=== PATIENT | female | born 1960 | race Caucasian/White ===

== ENCOUNTER → 2020-05-02 14:26 | Outpatient (BNVA) | payer OTHER, SELFPAY | PROVIDERS: PCP Internal Medicine; Referring Provider Internal Medicine; Visit Provider Surgery | DX: Z76.89 Persons encountering health services in other specified circumstances (principal) ==

== ENCOUNTER 2020-05-29 06:35 | Outpatient (REF) | payer OTHER, SELFPAY | END 2020-05-29 06:36 | disposition home or self-care (01) | LOC: HO.HMGCLDS 06:35 | PROVIDERS: PCP Internal Medicine; Visit Provider Internal Medicine | DX: Z20.828 Contact with and (suspected) exposure to other viral communicable diseases (principal) | CPT/HCPCS: C9803; U0003 ==

== ENCOUNTER 2020-06-14 06:30 | Day surgery (SDC) | payer OTHER, SELFPAY ==
[2020-06-09 09:39] VITALS: BMI 28.8
--- NOTE | 2020-06-13 12:10 | HO.ANESPROP2 ---
Documented by User: Nichole Suarez 06/13/20 12:11 HPI - Anesthesia Eval Consult details Narrative: 60yo F for Colonoscopy [facility] Past Medical History Medical History Family history of colon cancer Hypercholesterolemia Family History Family History Mother History of colon cancer, Onset Age: 77 Surgical History Surgical History History of colonoscopy Social History Social History Alcohol intake: current Alcohol intake frequency: holidays/special occasions only Alcohol type: wine Smoking Status: Never smoker Advance Directives Information Provided: No Current occupational status: employed 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 Meds Allergies Allergy/AdvReac Type Severity Reaction Status Date / Time No Known Allergies Allergy Verified 05/02/20 14:39 [No Known Allergies*] Home Medications Medication Instructions Recorded Confirmed Type atorvastatin 10 mg tablet 10 mg PO .THREE TIMES PER WEEK tab 05/02/20 06/09/20 History Exam Exam Date and Time: June 13, 2020 1210 Height,Weight and Vital Signs: Height 5 ft 3 in Weight 73.936 kg Assessment and Plan Assessment Anesthesia Assessment: Chart Reviewed Documented by User: Gabby Botello 06/14/20 08:07 [facility] Past Medical History Medical History Family history of colon cancer Hypercholesterolemia Family History Family History Mother History of colon cancer, Onset Age: 77 Family history of problems with anesthesia: No Surgical History Surgical History History of colonoscopy History of Problems with Anesthesia: No (Nausea and vomiting with conscious sedation for colonoscopy) Social History Social History (Reviewed 06/14/20 @ 07:19 by Gabby Ruiz Alcohol intake: current Alcohol intake frequency: holidays/special occasions only Alcohol type: wine Smoking Status: Never smoker Advance Directives Information Provided: No Current occupational status: employed 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 Meds Allergies Allergy/AdvReac Type Severity Reaction Status Date / Time No Known Allergies Allergy Verified 05/02/20 14:39 [No Known Allergies*] Home Medications Medication Instructions Recorded Confirmed Type atorvastatin 10 mg tablet 10 mg PO .THREE TIMES PER WEEK tab 05/02/20 06/09/20 History Exam Height,Weight and Vital Signs: Vital Signs Temp Pulse Resp BP Pulse Ox 06/14/20 06:55 97.3 F 78 18 118/71 98 Airway Mallampati Class: II TM Dist: >3cm Neck ROM: Full Heart: RRR Lungs: CTAB Assessment and Plan Assessment Anesthesia Assessment: Anesthesia Plan Discussed and Chart Reviewed Final Anesthetic Review NPO: Yes ASA Class: II Final Preanesthetic Review: No Changes in Pt Med Stat, Meds/Allgs Chart Reviewed, Consent Obtained/Reviewed and Anes Risks/Benef Reviewed Patient Risk: Low Procedure Risk: Low Anesthetic Plan Anesthetic Plan: MAC: Disposition: Standard PACU
[2020-06-14 06:55] VITALS: BP 118/71; PULSE 78; RESP 18; TEMP 36.3; O2SAT 98
[2020-06-14] MEDS: Lactated Ringers 1,000 ML 100 ML IVCONT (07:20)
--- NOTE | 2020-06-14 07:20 | MHC.SHP ---
Pre-Procedural Eval Section B Chief Complaint: Family Hx of Colon Cancer Details of Present Illness: No GI symptoms. Routine screening due. Relevant Family History (Specify if Yes): Yes Relevant Social History: None Present Medications: see Short Stay Collaborative assessment Medical History: Significant History (hypercholesterolemia) History of Previous Operations: No relevant previous surgery Allergies: Allergies Allergy/AdvReac Type Severity Reaction Status Date / Time No Known Allergies Allergy Verified 05/02/20 14:39 [No Known Allergies*] Review of Systems Sugical H&P ROS: Negative: Constitution, Cardiovascular, Respiratory, Neurological, Psychiatric, Hem-Onc, Allergic/Immunologic, Gastrointestinal, Genitourinary, Musculoskeletal, Integumentary, Endocrine and Eyes/Ears/Nose/Throat Exam Surgical H&P Exam: Normal: HEENT, Normal: Heart, Normal: Lungs, Normal: Extremities, Normal: Abdomen, Normal: Skin and Normal: Neurological Plan Diagnosis/Plan: Unchanged Patient has been examined and remains a candidate for the planned procedure
[2020-06-14] MEDS: Scopolamine 1.5 MG PATCH.TD.3 TRANSDERMA (07:22)
--- NOTE | 2020-06-14 08:20 | W.PM.OPN ---
Operative Note Operative Note Date of Service: 06/14/20 Narrative: Preoperative diagnosis: Family history of colon cancer Postoperative diagnosis: The same, colon polyps and internal hemorrhoids Procedure: Colonoscopy with biopsy and polypectomy Anesthesia: Monitored anesthesia care Specimens: Polyps distal ascending colon and 20 cm Estimated blood loss: Less than 1 cc Other findings: None Immediate complications: None Indications: This is a 60-year-old female with a family history of colon cancer who presents for routine surveillance Procedure in detail: The patient left lateral decubitus position, time-out procedure was performed. Adequate sedation was achieved. Rectal examination was performed and was unremarkable. The flexible pediatric colonoscope was introduced and was gradually advanced through the bowel to the level of the cecum. The cecal pouch, ileocecal valve and appendiceal orifice were visualized and appeared normal. The ileocecal valve was not intubated. The prep was good. The scope was slowly withdrawn, visualizing all mucosal surfaces, was retroflexed within the rectum and was then straightened and withdrawn. In the distal ascending colon, 1 small polyp was identified and was removed with a single bite of biopsy forceps. No abnormalities were noted in the transverse or descending colon. In the sigmoid colon at 20 cm, an approximately 4 mm polyp was identified and was completely removed using the biopsy forceps. There was no significant bleeding. Retroflexion within the rectum revealed internal hemorrhoids. No other abnormalities were identified. Based upon findings, next routine colonoscopy will be due in 5 years.
[2020-06-14 08:21] VITALS: BP 92/50; PULSE 76; RESP 14; TEMP 36.2; O2SAT 98
[2020-06-14 08:37] VITALS: BP 126/74; PULSE 67; RESP 16; TEMP 36.2; O2SAT 100
--- NOTE | 2020-06-14 09:05 | HO.POSTANES ---
Post Anesthesia Evaluation Post Anesthesia Evaluation Vital Signs: Vital Signs Temp Pulse Resp BP Pulse Ox 06/14/20 08:37 97.1 F 67 16 126/74 100 06/14/20 08:21 97.1 F 76 14 92/50 L 98 06/14/20 06:55 97.3 F 78 18 118/71 98 Anesthesia: Monitored Mental Status: Awake Pain Control: Satisfactory Nausea/Vomiting: None Hydration: Adequate Anesthesia-Related Issues: No Anes. Related Issues
== END 2020-06-14 09:00 | disposition home or self-care (01) ==
PROVIDERS: PCP Internal Medicine; Visit Provider Surgery
PROC: 0DJD8ZZ Inspection of Lower Intestinal Tract, Via Natural or Artificial Opening Endoscopic (ICD-10-PCS; CPT 45378; principal; 2020-06-14 07:30)
DX: Z12.11 Encounter for screening for malignant neoplasm of colon (principal); D12.2 Benign neoplasm of ascending colon; K63.5 Polyp of colon; K64.8 Other hemorrhoids; Z80.0 Family history of malignant neoplasm of digestive organs
CPT/HCPCS: 45380; 88305

== ENCOUNTER 2020-06-15 16:16 | Outpatient (REF) | payer OTHER, SELFPAY ==
--- NOTE | 2020-06-15 16:20 | MM_ITS ---
EXAMINATION: MM SCREENING DIGITAL BREAST TOMOSYNTHESIS, BILATERAL CLINICAL INFORMATION: Screening. Asymptomatic. The lifetime risk of breast cancer based on the Tyrer-Cuzick Model is 4.6%. COMPARISON: Mammography: March 26, 2018 and studies dating back to July 10, 2011 TECHNIQUE: Digital breast tomosynthesis is performed in both the craniocaudal and mediolateral oblique views along with computer-aided detection (CAD). Synthesized 2D images are generated from the tomosynthesis. FINDINGS: The breasts are extremely dense, which lowers the sensitivity of mammography (ACR BI-RADS breast composition Category d). There are no significant masses, abnormal calcifications, or other abnormalities. MM/MM tomosynthesis screening BI IMPRESSION: There are no significant changes from prior study. ASSESSMENT: BI-RADS 1: Negative RECOMMENDATION: Routine annual mammography screening. This patient's information was entered into a reminder system with a target due date for their next mammogram.
== END 2020-06-15 16:17 | disposition home or self-care (01) ==
LOC: HO.MAMMO 16:16
PROVIDERS: PCP Internal Medicine; Visit Provider Internal Medicine
DX: Z12.31 Encounter for screening mammogram for malignant neoplasm of breast (principal)
CPT/HCPCS: 77063; 77067

== ENCOUNTER 2021-04-27 06:36 | Outpatient (REF) | payer OTHER, SELFPAY ==
[2021-04-27 11:25] LABS: MANUAL DIFF FLAG NO
[2021-04-27 11:36] LABS: Eosinophils Absolute Auto 0.1 X10*3/uL (0.0-0.4); Hemoglobin 12.4 g/dl (12.0-16.0); Imm Gran Abs Auto 0.01 X10*3/uL (0.00-0.03); Imm Gran Pct Auto 0.2 % (0.0-0.4); Lymphocytes Absolute Auto 1.6 X10*3/uL (1.2-4.9); Lymphocytes Percent Auto 39.6 % (20-40); Mean Corpuscular HGB Conc 33.5 g/dl (31.0-35.0); Mean Corpuscular Hemoglobin 31.4 pg (27.0-33.0); Mean Corpuscular Volume 93.7 fL (80-98); Mean Platelet Volume 10.2 fL (9.4-12.3); Monocytes Absolute Auto 0.3 X10*3/uL (0.1-1.2); Neutrophils Percent Auto 50.2 % (45-73); Platelet Count 261 X10*3/uL (160-400); Red Blood Count 3.95 X10*6/uL (4.20-5.50); Red Cell Distribution Width 12.3 % (11.0-16.0)
[2021-04-27 11:45] LABS: Alanine Aminotransferase 13 U/L (0-31); Albumin Level 4.3 g/dL (3.5-5.0); Alkaline Phosphatase 39 U/L (39-117); Anion Gap 13 (12-20); Aspartate Amino Transferase 19 U/L (5-31); Bilirubin Direct 0.2 mg/dL (0.0-0.5); Bilirubin Total 0.5 mg/dL (0.0-1.0); Blood Urea Nitrogen 11 mg/dL (9-16); Calcium 9.4 mg/dL (8.4-10.2); Carbon Dioxide 26 mmol/L (22-29); Chloride 107 mmol/L (96-108); Cholesterol 177 mg/dL; Estimated Glomerular Filt Rate > 60; Glucose Random 116 mg/dL (60-115); HDL Cholesterol 58 mg/dL; LDL Cholesterol Calculated 107 mg/dl; Potassium 4.5 mmol/L (3.3-5.1); Sodium 141 mmol/L (135-145); Total Protein 7.1 g/dL (6.5-8.0); Triglycerides 60 mg/dL
[2021-04-27 12:06] LABS: Vitamin D 25-OH Total 32.6 ng/mL (>30)
== END 2021-04-27 06:37 | disposition home or self-care (01) ==
LOC: HO.HMGCLDS 06:36
PROVIDERS: PCP Internal Medicine; Visit Provider Internal Medicine
DX: Z00.00 Encounter for general adult medical examination without abnormal findings (principal)
CPT/HCPCS: 36415; 80053; 80061; 82248; 82306; 85025

== ENCOUNTER 2021-08-08 14:22 | Outpatient (REF) | payer OTHER, SELFPAY ==
--- NOTE | ~2021-08-08 | MM_ITS ---
EXAMINATION: MM SCREENING DIGITAL BREAST TOMOSYNTHESIS, BILATERAL CLINICAL INFORMATION: Screening. Asymptomatic. The lifetime risk of breast cancer based on the Tyrer-Cuzick Model is 7%. COMPARISON: Mammography: 06/15/2020, 03/26/2018, 02/09/2015 TECHNIQUE: Digital breast tomosynthesis is performed in both the craniocaudal and mediolateral oblique views along with computer-aided detection (CAD). Synthesized 2D images are generated from the tomosynthesis. FINDINGS: The breasts are heterogeneously dense, which may obscure small masses (ACR BI-RADS breast composition Category c). There are no significant masses, abnormal calcifications, or other abnormalities. Parenchymal pattern is similar to prior studies. There is no developing density or architectural abnormality. The axilla and skin contours are unremarkable. No significant changes. MM/MM tomosynthesis screening BI IMPRESSION: No mammographic evidence of malignancy. ASSESSMENT: BI-RADS 1: Negative RECOMMENDATION: Routine annual mammography screening. This patient's information was entered into a reminder system with a target due date for their next mammogram.
--- NOTE | ~2021-08-08 | MM_ITS ---
EXAMINATION: BONE DENSITOMETRY CLINICAL INDICATION: Menopausal. COMPARISON: Previous BD dated 03/26/2018 and baseline BD dated 02/04/2008. TECHNIQUE: Using a RegeneRx DXA System (software version: 13.1) manufactured by [employer], dual-energy x-ray absorptiometry was performed of the lumbar spine and left hip. The images are of good technical quality. Summary results are attached. FINDINGS: AP SPINE L1-L4: Current: BMD 0.956 g/cm2, Z-score -0.8, T-score -1.9, osteopenia, 2.2% decrease from previous, 15.5% decrease from baseline (<5% change is not significant). Prior: BMD 0.978 g/cm2. Baseline: BMD 1.131 g/cm2. LEFT FEMUR, NECK: Current: BMD 0.780 g/cm2, Z-score -0.7, T-score -1.9, osteopenia. Prior: BMD 0.836 g/cm2. Baseline: BMD 0.974 g/cm2. LEFT FEMUR, TOTAL: Current: BMD 0.932 g/cm2, Z-score 0.2, T-score -0.6, normal, 4.3% decrease from previous, 14.0% decrease from baseline (<5% change is not significant). Prior: BMD 0.974 g/cm2. Baseline: BMD 1.084 g/cm2. IDENTIFIED RISK FACTORS: Menopause. HISTORY OF FRACTURE: None listed. MEDICATIONS: Calcium, multivitamin. MM/XR DEXA axial skeleton IMPRESSION: 1. DIAGNOSIS: Osteopenia based on the lowest T-score value of -1.9 in the lumbar spine and femoral neck applying World Health Organization criteria. 2. 10-YEAR FRACTURE RISK PREDICTION, FRAX: Major osteoporotic fracture (clinical spine, forearm, hip or shoulder) 9.4%. Hip fracture 1.1%. 3. Treatment Recommendations: NOF guidelines recommend consideration for treatment in postmenopausal women and men age 50 and older presenting with the following: -A hip or vertebral (clinical or morphometric) fracture. -T-score less than or equal to -2.5 at the femoral neck or spine after appropriate evaluation to exclude secondary causes. -Low bone mass at the hip or spine and a 10-year fracture probability by FRAX of greater than or equal to 3% for hip fracture or greater than or equal to 20% for major osteoporotic fracture based on the [place] adapted WHO algorithm. 4. Other Recommendations: All treatment decisions require clinical judgment and consideration of individual patient factors, including patient preferences, comorbidities, previous drug use, risk factors not captured in the FRAX model (e.g. frailty, falls, vitamin D deficiency, increased bone turnover, interval significant decline in bone density) and possible under or overestimation of fracture risk by FRAX. Additional medical evaluation for secondary cause of low bone mineral density may be appropriate. FUTURE SCAN RECOMMENDATION: People with diagnosed cases of osteoporosis or at high risk for fracture should have regular bone mineral density tests. For patients eligible for Medicare, routine testing is allowed once every 2 years. The testing frequency can be increased to one year for patients who have rapidly progressing disease, those who are receiving or discontinuing medical therapy to restore bone mass, or have additional risk factors.
== END 2021-08-08 14:23 | disposition home or self-care (01) ==
LOC: HO.MAMMO 14:22
PROVIDERS: PCP Internal Medicine; Visit Provider Internal Medicine
DX: Z13.820 Encounter for screening for osteoporosis (principal); Z78.0 Asymptomatic menopausal state; Z12.31 Encounter for screening mammogram for malignant neoplasm of breast
CPT/HCPCS: 77063; 77067; 77080

== ENCOUNTER 2022-05-14 06:04 | Outpatient (REF) | payer OTHER, SELFPAY ==
[2022-05-14 11:37] LABS: MANUAL DIFF FLAG NO
[2022-05-14 11:50] LABS: Basophils Percent Auto 0.7 % (0-2); Eosinophils Absolute Auto 0.1 X10*3/uL (0.0-0.4); Eosinophils Percent Auto 1.9 % (0-4); Hematocrit 39.7 % (37.0-47.0); Hemoglobin 13.2 g/dl (12.0-16.0); Imm Gran Abs Auto 0.01 X10*3/uL (0.00-0.03); Imm Gran Pct Auto 0.2 % (0.0-0.4); Lymphocytes Absolute Auto 1.5 X10*3/uL (1.2-4.9); Lymphocytes Percent Auto 35.7 % (20-40); Mean Corpuscular HGB Conc 33.2 g/dl (31.0-35.0); Mean Corpuscular Hemoglobin 30.8 pg (27.0-33.0); Mean Corpuscular Volume 92.5 fL (80.0-98.0); Mean Platelet Volume 9.7 fL (9.4-12.3); Monocytes Absolute Auto 0.3 X10*3/uL (0.1-1.2); Monocytes Percent Auto 7.2 % (2-11); Neutrophils Absolute Auto 2.3 x10*3/uL (2.0-8.3); Neutrophils Percent Auto 54.3 % (45-73); Platelet Count 286 X10*3/uL (160-400); Red Blood Count 4.29 X10*6/uL (4.20-5.50); Red Cell Distribution Width 12.2 % (11.0-16.0); White Blood Count 4.3 X10*3/uL (4.8-10.8)
[2022-05-14 12:27] LABS: Alanine Aminotransferase 16 U/L (0-31); Albumin Level 4.5 g/dL (3.5-5.0); Alkaline Phosphatase 49 U/L (39-117); Anion Gap 15 (12-20); Aspartate Amino Transferase 21 U/L (5-31); Bilirubin Direct 0.2 mg/dL (0.0-0.5); Bilirubin Total 0.6 mg/dL (0.0-1.0); Blood Urea Nitrogen 17 mg/dL (9-16); Calcium 9.3 mg/dL (8.4-10.2); Carbon Dioxide 27 mmol/L (22-29); Chloride 105 mmol/L (96-108); Cholesterol 199 mg/dL; Estimated Glomerular Filt Rate > 60; Glucose Fasting 103 mg/dL (60-99); HDL Cholesterol 48 mg/dL; LDL Cholesterol Calculated 123 mg/dl; Potassium 4.5 mmol/L (3.3-5.1); Sodium 142 mmol/L (135-145); Total Protein 7.6 g/dL (6.5-8.0); Triglycerides 141 mg/dL
[2022-05-14 12:51] LABS: Thyroid Stimulating Hormone 1.27 uIU/mL (0.32-4.0); Vitamin D 25-OH Total 31.5 ng/mL (>30)
== END 2022-05-14 06:05 | disposition home or self-care (01) ==
LOC: HO.HMGCLDS 06:04
PROVIDERS: PCP Internal Medicine; Visit Provider Internal Medicine
DX: Z00.00 Encounter for general adult medical examination without abnormal findings (principal)
CPT/HCPCS: 36415; 80053; 80061; 80076; 82248; 82306; 84443; 85025

== ENCOUNTER → 2022-07-10 14:25 | Outpatient (REF) | payer OTHER, SELFPAY | LOC: HO.SL 14:25 | PROVIDERS: PCP Internal Medicine; Visit Provider Internal Medicine | DX: R06.83 Snoring (principal); R06.00 Dyspnea, unspecified; R53.83 Other fatigue | CPT/HCPCS: 95806 ==

== ENCOUNTER 2023-01-15 07:57 | Outpatient (REF) | payer OTHER, SELFPAY ==
[2023-01-15 12:26] LABS: Alanine Aminotransferase 20 U/L (0-31); Albumin Level 4.3 g/dL (3.5-5.0); Alkaline Phosphatase 49 U/L (39-117); Anion Gap 14 (12-20); Aspartate Amino Transferase 19 U/L (5-31); Bilirubin Direct 0.2 mg/dL (0.0-0.5); Bilirubin Total 0.8 mg/dL (0.0-1.0); Blood Urea Nitrogen 14 mg/dL (9-16); C Reactive Protein 0.27 mg/dL (< or = 0.50); Calcium 9.6 mg/dL (8.4-10.2); Carbon Dioxide 24 mmol/L (22-29); Chloride 106 mmol/L (96-108); Estimated Glomerular Filt Rate > 60; Glucose Fasting 105 mg/dL (60-99); Glucose Random 105 mg/dL (60-115); Potassium 4.4 mmol/L (3.3-5.1); Sodium 140 mmol/L (135-145); Total Protein 7.6 g/dL (6.5-8.0)
[2023-01-15 12:54] LABS: Free T4 (Free Thyroxine) 0.89 ng/dL (0.71-1.85); Thyroid Stimulating Hormone 1.37 uIU/mL (0.32-4.0)
== END 2023-01-15 07:58 | disposition home or self-care (01) ==
LOC: HO.HMGCLDS 07:57
PROVIDERS: PCP Internal Medicine; Visit Provider Internal Medicine
DX: R63.5 Abnormal weight gain (principal); E78.00 Pure hypercholesterolemia, unspecified
CPT/HCPCS: 36415; 80048; 80076; 82947; 84439; 84443; 86140

== ENCOUNTER 2023-03-14 09:23 | Outpatient (REF) | payer OTHER, SELFPAY ==
--- NOTE | 2023-03-14 | PFT_ITS ---
Forced vital capacity 115%, FEV1 126%, FEV1/FVC ratio is 84. [id number] 161% and MVV 83%. Post bronchodilator therapy there is no significant change. Total lung capacity 108% and residual volume 97%. Diffusion capacity 94%. CONCLUSION: Essentially normal pulmonary function test, and there is no evidence of obstructive or restrictive pulmonary disorder. MD NINA Olivo/PIYUSH / [id number]
== END 2023-03-14 09:24 | disposition home or self-care (01) ==
LOC: HO.RESP 09:23
PROVIDERS: Visit Provider Internal Medicine
DX: R06.02 Shortness of breath (principal)
CPT/HCPCS: 94010; 94727; 94729

== ENCOUNTER → 2023-03-14 09:25 | Outpatient (BNV) | payer OTHER, SELFPAY | PROVIDERS: Visit Provider Internal Medicine | DX: G47.33 Obstructive sleep apnea (adult) (pediatric) (principal); R06.09 Other forms of dyspnea | CPT/HCPCS: 94060; 94727; 94729 ==

== ENCOUNTER 2023-04-01 10:47 | Emergency (ER) | payer OTHER, SELFPAY ==
[2023-04-01 10:51] VITALS: BP 143/89; PULSE 80; RESP 18; TEMP 36.7; O2SAT 98; BMI 32.8
--- NOTE | 2023-04-01 10:54 | ECG_ITS ---
Test Reason : dizziness Blood Pressure : / mmHG Vent. Rate : 071 BPM Atrial Rate : 071 BPM P-R Int : 150 ms QRS Dur : 072 ms QT Int : 412 ms P-R-T Axes : 002 039 022 degrees QTc Int : 447 ms Normal sinus rhythm Normal ECG No previous ECGs available Referred By: Generic ED Physician Electronically Signed By:GISSEL GILL
--- NOTE | 2023-04-01 11:00 | ED_ITS ---
HPI - General Adult General Chief complaint: General Medical Stated complaint: HBP/Dizziness/Headache Time Seen by Provider: 04/01/23 13:39 Source: patient Mode of arrival: ambulatory Limitations: no limitations History of Present Illness HPI narrative: Patient is 62-year-old female presenting to the emergency department after missing an episode of lightheadedness at work earlier today. 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 States that she leaned forward and placed her head between her knees. After several minutes symptoms past and she went to the school nurse for evaluation. The school nurse reported that her blood pressure was mildly elevated to approximately 145 systolic. She reports some chest pressure at this time, states is unsure if it was related to her episode of lightheadedness or if it was related to anxiety. States that the school nurse told her to drink some water and to return in an hour for a blood pressure check. Patient states that she did this and her blood pressure was still mildly elevated upon recheck. She states that the nurse checked with both the automatic machine as well as a manual blood pressure. She denies current dizziness, lightheadedness, headache, vision changes, weakness, numbness or tingling, chest pain or shortness of breath. MD complaint: lightheaded Onset (ago): hour(s) Location: chest Radiation: non-radiation Severity: mild Quality: other (pressure) Pain Consistency: now resolved Relieving factors: none Exacerbating factors: none Associated symptoms: other (lightheadedness) Treatments prior to arrival: none Related Data Home Medications Medication Instructions Recorded Confirmed atorvastatin 10 mg tablet 10 mg PO .THREE TIMES PER WEEK 05/02/20 06/09/20 Allergies Allergy/AdvReac Type Severity Reaction Status Date / Time No Known Allergies Allergy Verified 05/02/20 14:39 [No Known Allergies*] Review of Systems 2 Review of Systems: Constitutional : No Weight loss, No Fever, No Chills, No Fatigue, No Malaise ENT/Mouth : No sore throat, No Rhinorrhea Eyes: No Eye Pain, No Swelling, No Redness Cardiovascular : No Chest Pain, No SOB, No Dyspnea on Exertion, No Orthopnea, No Edema, No Palpitations Respiratory : No Cough, No Sputum, No Wheezing Gastrointestinal : No Nausea, No Vomiting, No Diarrhea, No Constipation, No abdominal Pain, No Hematochezia, No Melena Genitourinary : No Dysuria, No Urinary Frequency, No Hematuria, Musculoskeletal : No joint pain, No Myalgias, No Joint Swelling Skin : No Skin Lesions, No rash Neuro : No Weakness, No Numbness, No Dizziness, No Headache Psych : No Anxiety/Panic, No Depression All other systems reviewed and are negative Yes all other systems are reviewed and are negative [facility] Past Medical History Attestation statement: The following information was validated with the patient. 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 Blood pressure mildly elevated. Heart rate normal. Respiratory rate normal. Temperature normal. Oxygen saturation normal. NIH Stroke Scale Internal: Initial- Upon Arrival Time: 14:34 Level of Consciousness: Alert Level of Consciousness Questions: Answers both questions correctly Level of Consciousness Commands: Performs both tasks correctly Best Gaze: Normal Visual: No visual loss Facial Palsy: Normal Motor Arm (Right): No drift Motor Arm (Left): No drift Motor Leg (Right): No drift Motor Leg (Left): No drift Limb Ataxia: Absent Sensory: Normal Best Language: No aphasia Dysarthia: Normal Extinction and Inattention: No abnormality Score: 0 Course Course Course Narrative: This is an RME: Additional HPI, ROS, PE not included below will be deferred to primary provider. 62 year old female presents w/ dizzy spell at work w/ chest discomfort since before 8 am. Denies cp, sob at this time. NIHSS-0 PE nonfocal neuro Plan- labs, EKG Medical Decision Making Medical Decision Making [facility] Narrative: Patient is 62-year-old female presenting to the emergency department after missing an episode of lightheadedness at work earlier today. On exam patient is awake, A+Ox3, VS WNL, afebrile, normal neurological exam without focal deficits, physical exam findings as above. Given reported symptoms and physical exam findings, initial differential includes ACS, hypertensive urgency, electrolyte abnormality, dehydration, cardiac dysrhythmia, anemia, orthostatic intolerance. Do not suspect infection. Labs notable for leukopenia consistent with baseline, no anemia, negative initial troponin, will repeat 3 hours from initial, no electrolyte abnormalities. EKG shows normal sinus rhythm at rate of 71 beats per minute. HEART score of 3. No delta on repeat troponin. No orthostatic intolerance noted on vital signs. All results discussed with patient and family and all questions answered. Given that patient has been asymptomatic since arrival, feel patient is stable for discharge home at this time. Instructed patient to schedule follow-up appointment with PCP this week. Return precautions discussed at bedside. Patient verbalized understanding of and agreement with plan. Differential Diagnosis Differential Diagnoses: The differential diagnosis associated with the presentation includes As per MDM. Admission/Observation Consideration of admission/observation: Escalation of care including admission/observation considered Lab Data [facility] Lab Attestation statement: I reviewed the patient's lab results. As per MDM. 04/01/23 11:19 04/01/23 11:19 Labs: Lab Results 04/01/23 04/01/23 Range/Units 11:19 14:25 WBC 4.7 L (4.8-10.8) X10*3/uL RBC 4.24 (4.20-5.50) X10*6/uL Hgb 13.2 (12.0-16.0) g/dl Hct 39.5 (37.0-47.0) % MCV 93.2 (80.0-98.0) fL MCH 31.1 (27.0-33.0) pg MCHC 33.4 (31.0-35.0) g/dl RDW 12.7 (11.0-16.0) % Plt Count 266 (160-400) X10*3/uL MPV 9.2 L (9.4-12.3) fL Immature Gran % (Auto) 0.4 (0.0-0.4) % Neut % (Auto) 63.4 (45-73) % Lymph % (Auto) 28.9 (20-40) % Canadian % (Auto) 5.1 (2-11) % Eos % (Auto) 1.3 (0-4) % Baso % (Auto) 0.9 (0-2) % Lymph # (Auto) 1.4 (1.2-4.9) X10*3/uL Canadian # (Auto) 0.2 (0.1-1.2) X10*3/uL Eos # (Auto) 0.1 (0.0-0.4) X10*3/uL Baso # (Auto) 0.0 (0.0-0.2) X10*3/uL Abs Immat Gran (auto) 0.02 (0.00-0.03) X10*3/uL Absolute Neuts (auto) 3.0 (2.0-8.3) x10*3/uL Absolute Nucleated RBC 0.000 (0.0-0.012) X10*3/uL Nucleated RBC % (auto) 0.0 (0.0-0.2) /100WBC Sodium 141 (135-145) mmol/L Potassium 4.1 (3.3-5.1) mmol/L Chloride 107 (96-108) mmol/L Carbon Dioxide 25 (22-29) mmol/L Anion Gap 13 (12-20) BUN 12 (9-16) mg/dL Creatinine 0.79 (0.5-1.4) mg/dL Estim Creat Clear Calc 74.8 Estimated GFR > 60 Random Glucose 112 (60-115) mg/dL Calcium 9.6 (8.4-10.2) mg/dL Total Bilirubin 0.4 (0.0-1.0) mg/dL AST 20 (5-31) U/L ALT 17 (0-31) U/L Alkaline Phosphatase 57 (39-117) U/L Troponin I High Sens < 2.7 < 2.7 (<3.5-17.0) ng/L Total Protein 8.1 H (6.5-8.0) g/dL Albumin 4.6 (3.5-5.0) g/dL Independent Interpretation I performed an independent interpretation of an: EKG Interpretation: Normal sinus rhythm, rate 71 bpm, normal RI interval, no evidence of STEMI External Record Review External record reviewed: Inpatient record, Office record and Outpatient record Scores Heart Score History: -1- moderately suspicious ECG: -0- normal Age: -1- >45 - <65 Risk factory: -1- 1 or 2 risk factors Troponin: -0- < or = normal limit Score: 3 Risk: 1.7% Discharge Plan Discharge Clinical Impression: Episodic lightheadedness Patient Disposition: Home, Self-Care Instructions: Lightheadedness (ED) Additional Instructions: You were evaluated in the emergency department today for an episode of lightheadedness. Your evaluation including blood work and EKG did not reveal any evidence of conditions requiring emergent treatment at this time. Please contact your primary care provider tomorrow to schedule follow-up appointment. Return to the emergency department if you experience additional episodes of dizziness/lightheadedness, chest pain, shortness of breath, vision changes, new weakness, numbness, tingling to your extremities, or any other concerning symptoms. Prescriptions: No Action atorvastatin 10 mg tablet 10 mg PO .THREE TIMES PER WEEK
[2023-04-01 11:23] LABS: MANUAL DIFF FLAG NO
[2023-04-01 11:25] LABS: Basophils Percent Auto 0.9 % (0-2); Eosinophils Absolute Auto 0.1 X10*3/uL (0.0-0.4); Eosinophils Percent Auto 1.3 % (0-4); Hematocrit 39.5 % (37.0-47.0); Hemoglobin 13.2 g/dl (12.0-16.0); Imm Gran Abs Auto 0.02 X10*3/uL (0.00-0.03); Imm Gran Pct Auto 0.4 % (0.0-0.4); Lymphocytes Absolute Auto 1.4 X10*3/uL (1.2-4.9); Lymphocytes Percent Auto 28.9 % (20-40); Mean Corpuscular HGB Conc 33.4 g/dl (31.0-35.0); Mean Corpuscular Hemoglobin 31.1 pg (27.0-33.0); Mean Corpuscular Volume 93.2 fL (80.0-98.0); Mean Platelet Volume 9.2 fL (9.4-12.3); Monocytes Absolute Auto 0.2 X10*3/uL (0.1-1.2); Monocytes Percent Auto 5.1 % (2-11); Neutrophils Percent Auto 63.4 % (45-73); Platelet Count 266 X10*3/uL (160-400); Red Blood Count 4.24 X10*6/uL (4.20-5.50); Red Cell Distribution Width 12.7 % (11.0-16.0); White Blood Count 4.7 X10*3/uL (4.8-10.8)
[2023-04-01 11:37] LABS: Alanine Aminotransferase 17 U/L (0-31); Albumin Level 4.6 g/dL (3.5-5.0); Alkaline Phosphatase 57 U/L (39-117); Anion Gap 13 (12-20); Aspartate Amino Transferase 20 U/L (5-31); Bilirubin Total 0.4 mg/dL (0.0-1.0); Blood Urea Nitrogen 12 mg/dL (9-16); Calcium 9.6 mg/dL (8.4-10.2); Carbon Dioxide 25 mmol/L (22-29); Chloride 107 mmol/L (96-108); Creatinine Clr Calc Pharmacy 74.8; Estimated Glomerular Filt Rate > 60; Glucose Random 112 mg/dL (60-115); Potassium 4.1 mmol/L (3.3-5.1); Sodium 141 mmol/L (135-145); Total Protein 8.1 g/dL (6.5-8.0)
[2023-04-01 11:44] LABS: Troponin-I High Sensitivity < 2.7 ng/L (<3.5-17.0)
[2023-04-01 15:23] LABS: Troponin-I High Sensitivity < 2.7 ng/L (<3.5-17.0)
[2023-04-01 15:58] VITALS: BP 145/75; PULSE 67
[2023-04-01 16:03] VITALS: BP 138/75; PULSE 63
[2023-04-01 16:05] VITALS: BP 143/81; PULSE 71
== END 2023-04-01 16:35 | disposition home or self-care (01) ==
PROVIDERS: Registered Nurse Emergency; Emergency Provider Emergency Medicine; PCP Internal Medicine
DX: R42 Dizziness and giddiness (principal); R51.9 Headache, unspecified; Z79.899 Other long term (current) drug therapy
CPT/HCPCS: 36415; 80053; 84484; 85025; 93005; 99283; 99284

== ENCOUNTER 2023-04-03 12:19 | Outpatient (REF) | payer OTHER, SELFPAY ==
--- NOTE | ~2023-04-03 | XR_ITS ---
EXAMINATION: XR SINUSES CLINICAL INFORMATION: Sinusitis COMPARISON: None available. TECHNIQUE: White, Vazquez, lateral, and SMV FINDINGS: Paranasal sinuses appear clear without air-fluid levels. No fractures are identified. No radiodense foreign bodies. XR/XR sinus min 3V IMPRESSION: Unremarkable examination.
== END 2023-04-03 12:20 | disposition home or self-care (01) ==
LOC: HO.HMGCX 12:19
PROVIDERS: PCP Internal Medicine; Visit Provider Internal Medicine
DX: J32.9 Chronic sinusitis, unspecified (principal)
CPT/HCPCS: 70220

== ENCOUNTER 2023-05-23 09:39 | Outpatient (REF) | payer OTHER, SELFPAY ==
[2023-05-23 13:44] LABS: MANUAL DIFF FLAG NO
[2023-05-23 13:49] LABS: Basophils Absolute Auto 0.1 X10*3/uL (0.0-0.2); Basophils Percent Auto 1.1 % (0-2); Eosinophils Absolute Auto 0.1 X10*3/uL (0.0-0.4); Eosinophils Percent Auto 2.5 % (0-4); Hematocrit 39.6 % (37.0-47.0); Hemoglobin 13.1 g/dl (12.0-16.0); Imm Gran Abs Auto 0.02 X10*3/uL (0.00-0.03); Imm Gran Pct Auto 0.5 % (0.0-0.4); Lymphocytes Absolute Auto 1.5 X10*3/uL (1.2-4.9); Lymphocytes Percent Auto 33.8 % (20-40); Mean Corpuscular HGB Conc 33.1 g/dl (31.0-35.0); Mean Corpuscular Hemoglobin 30.9 pg (27.0-33.0); Mean Corpuscular Volume 93.4 fL (80.0-98.0); Monocytes Absolute Auto 0.4 X10*3/uL (0.1-1.2); Monocytes Percent Auto 8.8 % (2-11); Neutrophils Absolute Auto 2.4 x10*3/uL (2.0-8.3); Neutrophils Percent Auto 53.3 % (45-73); Platelet Count 288 X10*3/uL (160-400); Red Blood Count 4.24 X10*6/uL (4.20-5.50); Red Cell Distribution Width 12.6 % (11.0-16.0); White Blood Count 4.4 X10*3/uL (4.8-10.8)
[2023-05-23 14:14] LABS: Alanine Aminotransferase 13 U/L (0-31); Albumin Level 4.3 g/dL (3.5-5.0); Alkaline Phosphatase 51 U/L (39-117); Anion Gap 11 (12-20); Aspartate Amino Transferase 19 U/L (5-31); Bilirubin Total 0.6 mg/dL (0.0-1.0); Blood Urea Nitrogen 15 mg/dL (9-16); Calcium 9.6 mg/dL (8.4-10.2); Carbon Dioxide 28 mmol/L (22-29); Chloride 106 mmol/L (96-108); Cholesterol 209 mg/dL (<200); Estimated Glomerular Filt Rate > 60; Glucose Fasting 100 mg/dL (60-99); HDL Cholesterol 54 mg/dL (>40); LDL Cholesterol Calculated 135 mg/dL (<100); Potassium 4.9 mmol/L (3.3-5.1); Sodium 140 mmol/L (135-145); Total Protein 7.5 g/dL (6.5-8.0); Triglycerides 100 mg/dL (<150)
[2023-05-23 14:22] LABS: Vitamin D 25-OH Total 34.5 ng/mL (>30)
== END 2023-05-23 09:40 | disposition home or self-care (01) ==
LOC: HO.HMGCLDS 09:39
PROVIDERS: PCP Internal Medicine; Visit Provider Internal Medicine
DX: E78.00 Pure hypercholesterolemia, unspecified (principal); R79.89 Other specified abnormal findings of blood chemistry
CPT/HCPCS: 36415; 80053; 80061; 82306; 85025

== ENCOUNTER 2023-08-15 15:06 | Outpatient (REF) | payer OTHER, SELFPAY ==
--- NOTE | ~2023-08-15 | XR_ITS ---
EXAMINATION: XR CHEST CLINICAL INFORMATION: Cough. COMPARISON: None available. TECHNIQUE: 2 views of the chest were obtained. FINDINGS: No significant abnormality is noted involving the heart, lungs, mediastinum, bony thorax or soft tissues. XR/XR chest 2V IMPRESSION: Unremarkable examination.
[2023-08-15 16:05] LABS: Influenza A PCR NEGATIVE (Negative); Influenza B PCR NEGATIVE (Negative); Resp Syncy Virus RNA Qual PCR NEGATIVE (Negative); SARS COV2 PCR INHOUSE NEGATIVE (Negative)
== END 2023-08-15 15:07 | disposition home or self-care (01) ==
LOC: HO.XRAY 15:06
PROVIDERS: PCP Internal Medicine; Visit Provider Internal Medicine
DX: Z11.52 Encounter for screening for COVID-19 (principal); Z20.822 Contact with and (suspected) exposure to COVID-19; R05.9 Cough, unspecified
CPT/HCPCS: 0241U; 71046

== ENCOUNTER 2024-03-03 14:28 | Outpatient (REF) | payer OTHER, SELFPAY ==
--- NOTE | ~2024-03-03 | MM_ITS ---
EXAMINATION: MM SCREENING DIGITAL BREAST TOMOSYNTHESIS, BILATERAL CLINICAL INFORMATION: Screening. Asymptomatic. COMPARISON: Mammography: Comparison is made with available prior examinations. TECHNIQUE: Digital breast tomosynthesis is performed in both the craniocaudal and mediolateral oblique views along with computer-aided detection (CAD). Synthesized 2D images are generated from the tomosynthesis. FINDINGS: The breasts are heterogeneously dense, which may obscure small masses (ACR BI-RADS breast composition Category c). There are no significant masses, abnormal calcifications, or other abnormalities. MM/MM tomosynthesis screening BI IMPRESSION: No mammographic evidence of malignancy. ASSESSMENT: BI-RADS BI-RADS 1 - Negative RECOMMENDATION: Routine annual mammography screening. 1 year F/U This examination should not preclude the clinical evaluation of a suspicious palpable abnormality. This patient's information was entered into a reminder system with a target due date for their next mammogram. Electronically signed by: Sneha Alfonso DO 03/25/2024 06:16 PM EDT
== END 2024-03-03 14:29 | disposition home or self-care (01) ==
LOC: HO.MAMMO 14:28
PROVIDERS: PCP Internal Medicine; Visit Provider Internal Medicine
DX: Z12.31 Encounter for screening mammogram for malignant neoplasm of breast (principal)
CPT/HCPCS: 77063; 77067

== ENCOUNTER → 2024-03-03 14:45 | Outpatient (BNV) | payer OTHER, SELFPAY | PROVIDERS: PCP Internal Medicine; Visit Provider Internal Medicine | DX: Z12.31 Encounter for screening mammogram for malignant neoplasm of breast (principal) | CPT/HCPCS: 77063; 77067 ==

== ENCOUNTER 2024-06-08 07:34 | Outpatient (REF) | payer OTHER, SELFPAY ==
[2024-06-08 07:44] LABS: MANUAL DIFF FLAG NO
[2024-06-08 08:07] LABS: Basophils Absolute Auto 0.1 X10*3/uL (0.0-0.2); Basophils Percent Auto 1.1 % (0-2); Eosinophils Absolute Auto 0.1 X10*3/uL (0.0-0.4); Eosinophils Percent Auto 2.3 % (0-4); Hematocrit 38.9 % (37.0-47.0); Hemoglobin 13.3 g/dl (12.0-16.0); Imm Gran Abs Auto 0.01 X10*3/uL (0.00-0.03); Imm Gran Pct Auto 0.2 % (0.0-0.4); Lymphocytes Absolute Auto 1.7 X10*3/uL (1.2-4.9); Lymphocytes Percent Auto 38.8 % (20-40); Mean Corpuscular HGB Conc 34.2 g/dl (31.0-35.0); Mean Corpuscular Hemoglobin 31.4 pg (27.0-33.0); Mean Platelet Volume 9.7 fL (9.4-12.3); Monocytes Absolute Auto 0.4 X10*3/uL (0.1-1.2); Monocytes Percent Auto 8.1 % (2-11); Neutrophils Absolute Auto 2.2 x10*3/uL (2.0-8.3); Neutrophils Percent Auto 49.5 % (45-73); Platelet Count 266 X10*3/uL (160-400); Red Blood Count 4.23 X10*6/uL (4.20-5.50); Red Cell Distribution Width 12.8 % (11.0-16.0); White Blood Count 4.4 X10*3/uL (4.8-10.8)
[2024-06-08 08:28] LABS: Alanine Aminotransferase 21 U/L (0-31); Albumin Level 4.3 g/dL (3.5-5.0); Alkaline Phosphatase 46 U/L (39-117); Anion Gap 11 (12-20); Aspartate Amino Transferase 25 U/L (5-31); Bilirubin Direct 0.2 mg/dL (0.0-0.5); Bilirubin Total 0.7 mg/dL (0.0-1.0); Blood Urea Nitrogen 13 mg/dL (9-16); Calcium 9.2 mg/dL (8.4-10.2); Carbon Dioxide 27 mmol/L (22-29); Chloride 107 mmol/L (96-108); Cholesterol 205 mg/dL (<200); Estimated Glomerular Filt Rate > 60; Glucose Fasting 102 mg/dL (60-99); HDL Cholesterol 54 mg/dL (>40); LDL Cholesterol Calculated 133 mg/dL (<100); Magnesium 2.3 mg/dL (1.6-2.6); Potassium 4.7 mmol/L (3.3-5.1); Sodium 140 mmol/L (135-145); Total Protein 7.3 g/dL (6.5-8.0); Triglycerides 91 mg/dL (<150)
[2024-06-08 08:46] LABS: Free T4 (Free Thyroxine) 1.05 ng/dL (0.71-1.85); Thyroid Stimulating Hormone 1.04 uIU/mL (0.32-4.0); Vitamin D 25-OH Total 43.9 ng/mL (>30)
[2024-06-08 08:50] LABS: Vitamin B12 659 pg/mL (200-900)
== END 2024-06-08 07:35 | disposition home or self-care (01) ==
LOC: HO.LAB 07:34
PROVIDERS: PCP Internal Medicine; Visit Provider Internal Medicine
DX: R00.2 Palpitations (principal); E78.00 Pure hypercholesterolemia, unspecified; M85.80 Other specified disorders of bone density and structure, unspecified site
CPT/HCPCS: 36415; 80053; 80061; 80076; 82248; 82306; 82607; 83735; 84439; 84443; 85025

== ENCOUNTER → 2024-06-14 09:01 | Outpatient (REF) | payer OTHER, SELFPAY ==
--- NOTE | 2024-06-14 09:05 | CA_ITS ---
Transthoracic Echocardiogram Patient (Last, First, Middle): Danielle Omalley A Gender: Female Date of : 1960 Age: 64 Procedure Date: 06/14/2024 Procedure Type: Transthoracic Echocardiogram Location: OP Height: 160.02 cm Weight: 81.65 kg BSA: 1.85 m2 Heart Rate: bpm BP: 118 / 60 mmHg Plant Superintendent: Referring MD: Blair Light MD Pumper Gauger: Gio Hickman MD Symptoms: PALPITATIONS R00.2 Study Quality: Good ECG Rhythm: Sinus Conclusions: - 1. Normal LV ejection fraction of 60 65% 2. Normal cardiac valvular Dopplers 3. Normal RV systolic pressure 4. Small pericardial effusion near the left ventricle Findings Left Ventricle Normal left ventricular size, thickness, and systolic function. The visually estimated ejection fraction is between 60-65%. Spectral Doppler is indicative of a normal filling pattern. Right Ventricle Normal right ventricular cavity size and systolic function. Atria Both atria are normal in size. Aortic Valve Normal aortic valve structure and function. There is no aortic valve stenosis. There is no aortic valve regurgitation. Mitral Valve Normal mitral valve structure and function. There is trace mitral valve regurgitation. There is no mitral valve stenosis. Pulmonic Valve The pulmonic valve is likely normal. Tricuspid Valve Normal tricuspid valve structure. There is mild tricuspid valve regurgitation. The right ventricular systolic pressure is normal. The right ventricular systolic pressure is 24 mmHg. Normal right atrial pressure. There is no evidence of pulmonary hypertension. Great Vessels All visible segments of the aorta are normal in size. The pulmonary artery was not well visualized. There is no dilatation of the ascending aorta measuring 2.90 cm. Venous The inferior vena cava is normal in size and collapses greater than 50% with inspiration. Pericardium/Pleural There is a small loculated pericardial effusion overlying the left ventricle. Measurements 2D Linear Measurements IVSd: 0.90 0.6-0.9/0.6-1.0 cm LVIDd: 4.24 3.9-5.3/4.2-5.9 cm LVIDd Index: 2.29 2.4-3.2/2.2-3.1 cm/m2 LVIDs: 2.80 2.0-3.6 cm LVPWd: 0.89 0.7-1.1 cm Ao Root: 2.80 2.1-3.5 cm LA Diam: 4.20 2.7-3.8/3.0-4.0 cm LAIDs Index: 2.27 1.5-2.3 cm/m2 LV Mass: 147.96 67-162/88-224 g LV Mass Index: 79.98 43-95/49-115 g/m2 LVOT Diam: 2.10 3.0+(-)1.3 cm Mitral Valve MV Pk E: 0.61 MV PK A: 0.80 MV Decel Time: 203.00 E/A: 0.80 E'Lateral: 10.10 E'Medial: 5.11 E/E' Med: 11.90 E/E' Lat: 6.00 PHT: 59.00 MVA PHT: 3.73 Decel Assumption: 2.99 Aortic Valve AoV Pk Howie: 1.55 AoV Mn Howie: 1.06 AoV VTI: 0.41 AoV Pk Grad: 10.00 Aov Mn Grad: 5.00 REX Cont.VTI: 2.21 LVOT LVOT Pk Howie: 1.10 LVOT Mn Howie: 0.70 LVOT VTI: 0.26 LVOT Pk Grad: 5.00 LVOT Mn Grad: 2.00 LVOT Diam: 2.10 LVOT Area: 3.46 Diastolic Function MV Pk E: 0.61 MV Pk A: 0.80 E/A: 0.80 E'Medial: 5.11 E/E' Med: 11.90 E' Laterial: 10.10 E/E' Lat: 6.00 Right Ventricle TAPSE (mm): 24.00 TVS' Howie: 11.00 Tricuspid Valve TR Pk Howie: 2.31 TR Pk Grad: 21.00 RA Press: 3.00 RVSP: 24.00 Great Vessels Aorta Ao Root-2D: 2.80 2.0-3.7 cm Ao Asc: 2.90 2.1-3.4 cm Ao Arch: 2.60 Pulmonary Valve PV Pk Howie: 1.06 Peak PV Grad: 4.00 Updated in Other Vendor System with Status of Final Gio Hickman MD electronically signed on 06/14/2024 12:31:34 PM with status of Final
== END ==
LOC: HO.CARD 09:01
PROVIDERS: PCP Internal Medicine; Visit Provider Internal Medicine
DX: R00.2 Palpitations (principal)
CPT/HCPCS: 93306

== ENCOUNTER → 2024-06-14 09:05 | Outpatient (BNV) | payer OTHER, SELFPAY | PROVIDERS: PCP Internal Medicine; Visit Provider Internal Medicine Cardiovascular Disease | DX: I36.1 Nonrheumatic tricuspid (valve) insufficiency (principal) | CPT/HCPCS: 93306 ==

== ENCOUNTER 2024-10-11 14:23 | Outpatient (AMB) | payer OTHER, SELFPAY ==
--- NOTE | 2024-10-11 14:25 | MHC.OFFWIV ---
Intake Vital Signs 10/11/24 14:26 Weight 186 lb BP 118/72 Blood Pressure Location Lt brachial Position Sitting Pulse 91 Pulse Source Pulse Oximeter Temp 97.9 F Temp Source Oral Pulse Oximetry (%) 98 Oxygen Delivery Method Room Air Intake Visit Reasons: EP-conjunctivitis Intake Note: Patient here for ? conjuctivitis, itching, burning and discharge that started this morning. She did mention her has it and a couple of other people he works around as well. Patient Tobacco Use Status: Never used Tobacco Allergies No Known Allergies [No Known Allergies*] Allergy (Verified 10/11/24 14:27) Do you need a note to return to daycare/school/sports/work: No HPI HPI Comments History of Present Illness Details History of Present Illness - The patient is a 64-year-old female presenting with conjunctivitis symptoms x a few days. - Reports redness, burning sensation, and itchiness in both eyes, accompanied by greenish discharge in the morning. - Eyes crusted shut upon waking. - No contact lens use. - No change in visual acuity or pain experienced. - Denies fever or other systemic symptoms. - Known exposure to experiencing similar symptoms. Physical Exam General: Cooperative, healthy appearing, comfortable, no acute distress and well developed Orientation: Patient oriented x3 Limitations: No limitations Head: Normal to inspection Ears: Hearing grossly normal bilaterally Nose: Normal External nose present Face and sinus: Normal facial exam Eyes: bilateral eyes with scant injection, leaking greenish fluid, no surrounding erythema or edema Neck: Normal visual inspection and Yes full ROM Respiratory: Normal respiratory effort and able to speak in complete sentences. 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 Review of Systems Const All systems reviewed & are unremarkable except as noted in HPI and below Physical Exam Vital Signs: Last Vital Signs Temp 97.9 F 10/11/24 14:26 Pulse 91 10/11/24 14:26 BP 118/72 10/11/24 14:26 Pulse Ox 98 10/11/24 14:26 Oxygen Delivery Method Room Air 10/11/24 14:26 Assessment & Plan Assessment & Plan (1) Bacterial conjunctivitis of both eyes: Code(s): H10.9 - Unspecified conjunctivitis; B96.89 - Other specified bacterial agents as the cause of diseases classified elsewhere Plan: The prescribed intervention for bacterial conjunctivitis is erythromycin ophthalmic ointment, to be used four times daily in both eyes for seven days, with clear instructions on proper application. This ointment is preferred due to its better retention in the eye compared to drops. The patient should dispose of any recent eye makeup to prevent reinfection and adhere to strict hygiene measures due to the contagious nature of the condition. Prescription has been sent to the designated pharmacy, and while the condition is self-limiting, adherence to the full course is advised for complete resolution. Patient was informed of contagiousness and advised on precautionary measures. Patient was informed and verbally consented to the use of an ambient scribe for clinic note documentation during this visit. Medications: New erythromycin Apply to left eye 4 times a day while awake 0.5 inches ophthalmic (eye) QID 3.5 grams 0RF Coding Level of Care Code Est Pt Level 3 (97043) Diagnoses Bacterial conjunctivitis of both eyes H10.9; B96.89
[2024-10-11 14:26] VITALS: BP 118/72; PULSE 91; TEMP 36.6; O2SAT 98
== END 2024-10-11 14:40 | disposition home or self-care (01) ==
PROVIDERS: PCP Internal Medicine; Visit Provider Physician Assistant
DX: H10.9 Unspecified conjunctivitis (principal); B96.89 Other specified bacterial agents as the cause of diseases classified elsewhere

== ENCOUNTER → 2024-10-11 14:23 | Outpatient (BNVA) | payer OTHER, SELFPAY | PROVIDERS: PCP Internal Medicine; Visit Provider Physician Assistant | DX: Z13.89 Encounter for screening for other disorder (principal) ==

== ENCOUNTER 2024-10-27 15:55 | Outpatient (AMB) | payer OTHER, SELFPAY ==
[2024-10-27 15:59] VITALS: BP 136/64; PULSE 79; BMI 31.6
--- NOTE | 2024-10-27 15:59 | A.OFFVIS_ITS ---
Vital Signs 10/27/24 15:59 Height 5 ft 3 in Weight 178 lb 9.191 oz BMI 31.6 BP 136/64 Blood Pressure Location Lt brachial Position Sitting Pulse 79 Intake Visit Reasons: blood in stool Intake Note: Danielle presents in the office as a new patient for blood in the stool. CC: She states that she started having blood in the stool after . She states that she had her PCP appt and it lasted up until jose. It got better and then a week ago it occurred again. If does not eat right she will have some constipation - sometimes she has issues with straining and she is aware it sounds like hemorrhoids or possible fissure. When she has a flare up she does the pads and prep [facility] Director Required: No Allergies No Known Allergies [No Known Allergies*] Allergy (Verified 10/27/24 16:01) HPI HPI blood in stool: Details: 64-year-old female here for initial evaluation of hematochezia. She is referred by Dr. Light. PMX Allergic rhinitis High cholesterol Osteopenia History of colon polyps-Denis Right knee bursitis Removal of melenoma on back/shoulder * SURGICAL HISTORY Colonoscopy 2009, 2014= hyperplastic polyps, 2019 - Jeison=1 TA 1 hy perplastic Tonsillectomy * ALLERGIES: NKDA * [employer] LABS: Laboratory Tests 06/08/24 07:42 WBC 4.4 L Hgb 13.3 Hct 38.9 Plt Count 266 Estimated GFR > 60 Total Bilirubin 0.7 Direct Bilirubin 0.2 AST 25 ALT 21 Alkaline Phosphatase 46 TSH 1.04 TODAY'S VISIT She has had 3 prior colonoscopies, 2 with Srini [address] Mchugh. The last in 2019 showed 1 TA and 1 hyperplastic polyp, the prior were hyperplastic only. Her mother had CRC. She had a period of rectal bleeding of BRB filling the bowel around , but it has largely ceased with only 1 recent episode of small amt of blood. She has treated it with roid cream. She denies any cardiac or respiratory problems. NO ID problems. She had a great deal of trouble with the narcotic/benzo old conscious sedation, but does well with propofol. She had 1 TA in 2019 and her mother had CRC in her 70's. 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 Review of Systems Const Denies fatigue, Denies fever(s), Denies night sweats, Denies poor appetite and Denies weight loss Eyes Details: glasses Reports requires corrective lenses ENT Reports Normal hearing present, Denies dental pain, Denies dysphagia, Denies hearing loss, Denies mouth pain, Denies odynophagia, Denies throat swelling, Denies tongue swelling and Reports other (Dentition adequate) Card Reports no additional complaints Resp Reports no additional complaints GI Details: Denies abdominal pain, Denies melena, Denies bloating, Reports hematochezia, Denies constipation, Denies GI cramping, Denies dysphagia, Denies excessive flatus, Denies early satiety, Denies heartburn, Denies diarrhea, Denies nausea, Denies odynophagia, Denies vomiting and Denies hematemesis Skin/Breast Denies pruritus, Denies lesions, Denies rash and Denies jaundice Neuro Reports Normal hearing present and Denies Abnormal speech present Endo Denies fatigue Aller/Immun Denies throat swelling and Denies tongue swelling Physical Exam Vital Signs: Last Vital Signs Pulse 79 10/27/24 15:59 BP 136/64 10/27/24 15:59 BMI result Body Mass Index 31.6 Const General: cooperative, no acute distress, well developed and well groomed Nutritional Appearance: well nourished and obese Orientation/consciousness: oriented to person, oriented to place and oriented to time Limitations: No language barrier HEENT Head: Yes normocephalic and Yes atraumatic Eyes General: appearance normal, both eyes and all related structures Pupils: Equal, round and reactive pupils present Neck Neck: Yes normal visual inspection and Yes no lymphadenopathy Thyroid: Thyroid normal Resp Effort & Inspection: normal respiratory effort and able to speak in complete sentences Auscultation: clear to auscultation bilaterally Cardio Rate: regular rate Rhythm: regular rhythm Heart sounds: Normal, physiologic split S2 sound present Peripheral pulses: radial pulses present and posterior tibial pulses present GI Inspection: No distended, No Abdominal panniculus present and Yes obesity Palpation (GI): Soft to palpation, nontender, no guarding, not rigid and No hepatosplenomegaly present Percussion: Yes normal to percussion Auscultation: normal bowel sounds Rectal Exam - Female: deferred Skin General skin exam: no rashes or lesions noted, turgor normal, skin not dry, no jaundice, No spider nevi and no striae Rashes: no rashes Nails: normal Neuro General: oriented to person, oriented to place and oriented to time Cranial nerves: Yes Equal, round and reactive pupils present and Yes Normal hearing present Speech: No Abnormal speech present Extrem General: Yes normal to inspection, No clubbing, No cyanosis and No edema Psych Appearance: grossly normal and well kempt Mental Status: mental status grossly normal Speech and movement: Normal speech and movement present Affect: normal affect Attitude: cooperative Thought process: Normal thought process present and not confabulating Thought content: Normal thought content present Insight: Good insight present (Psych) Judgement: Good judgement present (Psych) Assessment & Plan Assessment & Plan (1) Pre-op examination: Code(s): Z01.818 - Encounter for other preprocedural examination Category: Medical (2) Tubular adenoma of colon: Code(s): D12.6 - Benign neoplasm of colon, unspecified Category: Medical (3) Family history of colon cancer in mother: Comment: In her 70s Code(s): Z80.0 - Family history of malignant neoplasm of digestive organs Category: Medical (4) PONV (postoperative nausea and vomiting): Comment: Severe with the old conscious sedation cocktail, she prefers propofol Code(s): R11.2 - Nausea with vomiting, unspecified; Z98.890 - Other specified postprocedural states Category: Medical Plan She has had 3 prior colonoscopies, 2 with Delcid/jerry [address] Mchugh. The last in 2019 showed 1 TA and 1 hyperplastic polyp, the prior were hyperplastic only. Her mother had CRC. She had a period of rectal bleeding of BRB filling the bowel around , but it has largely ceased with only 1 recent episode of small amt of blood. She has treated it with roid cream. She denies any cardiac or respiratory problems. NO ID problems. She had a great deal of trouble with the narcotic/benzo old conscious sedation, but does well with propofol. She had 1 TA in 2019 and her mother had CRC in her 70's. Coding Level of Care Code New Pt Level 3 (73759) Diagnoses Pre-op examination Z01.818 Tubular adenoma of colon D12.6 Family history of colon cancer in mother Z80.0 PONV (postoperative nausea and vomiting) R11.2; Z98.890
== END 2024-10-27 16:27 | disposition home or self-care (01) ==
LOC: HO.HGI 15:56
PROVIDERS: PCP Internal Medicine; Visit Provider Nurse Practitioner
DX: Z01.818 Encounter for other preprocedural examination (principal); Z12.11 Encounter for screening for malignant neoplasm of colon; Z86.0101 Personal history of adenomatous and serrated colon polyps; Z80.0 Family history of malignant neoplasm of digestive organs
CPT/HCPCS: 99202

== ENCOUNTER → 2024-10-27 15:55 | Outpatient (BNVA) | payer OTHER, SELFPAY | PROVIDERS: PCP Internal Medicine; Visit Provider Nurse Practitioner ==

== ENCOUNTER 2024-12-02 10:54 | Outpatient (AMB) | payer OTHER, SELFPAY ==
[2024-12-02 10:29] VITALS: BP 122/74; PULSE 66; TEMP 36.6; O2SAT 97; BMI 32.2
--- NOTE | 2024-12-02 10:29 | A.OFFPC_ITS ---
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 At that time referred to GI for brbpr CV: On atorvastatin 3x/week. No htn. No chest pain. Has been following a low carb, low calorie diet and exercising daily for the past 2 years with no weight loss success. Saw [facility] gi in October. Colonoscopy 2019. Showed 1 TA and 1 hyperplastic polyp, the prior were hyperplastic only. Her mother had CRC. She is being scheduled for colonoscopy Mammo 02/2024 Due for bone density ROS CONSTITUTIONAL: Denies weight loss, fever and chills. HEENT: Denies changes in vision and hearing. RESPIRATORY: Denies SOB and cough. CV: Denies palpitations and CP GI: Denies abdominal pain, nausea, vomiting and diarrhea. : Denies dysuria and urinary frequency. MSK: Denies new myalgia and joint pain. SKIN: Denies rash and pruritus. NEUROLOGICAL: Denies headache PSYCHIATRIC: Denies recent changes in mood. PHYSICAL EXAM: GENERAL: Alert and oriented x 3. NAD EYES: EOMI. Anicteric. HENT: Moist mucous membranes. No scleral icterus. No cervical lymphadenopathy. LUNGS: Clear to auscultation bilaterally. CARDIOVASCULAR: Regular rate and rhythm. No murmur. No JVD. ABDOMEN: Soft, non-tender +bs EXTREMITIES: No edema. Non-tender. SKIN: No rashes or lesions. Warm. NEUROLOGIC: No focal neurological deficits. CN II-XII grossly intact PSYCHIATRIC: Cooperative. Appropriate mood and affect [facility] Medical History Melanoma of skin Hypercholesterolemia Family history of colon cancer Surgical History H/O melanoma excision Hx of tonsillectomy History of colonoscopy Family History Mother History of colon cancer, Onset Age: 77 Mother No problems noted. Father No problems noted. 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 1. Little interest or pleasure in doing things: not at all 2. Feeling down, depressed, or hopeless: not at all 3. Trouble falling or staying asleep, or sleeping too much: not at all 4. Feeling tired or having little energy: not at all 5. Poor appetite or overeating: not at all 6. Feeling bad about yourself - or that you are a failure or have let yourself or your family down: not at all 7. Trouble concentrating on things, such as reading the newspaper or watching television: not at all 8. Moving or speaking so slowly that other people could have noticed. Or the opposite - being so fidgety or restless that you have been moving around a lot more than usual: not at all 9. Thoughts that you would be better off or of hurting yourself in some way: not at all Total score: 0 Depression Screening Interpretation: Negative Depression Screening Done: Yes 74809 - PHQ-9 Billing: Yes Source: Developed by Drs. Buzz Perez, Fatemeh Pardo, Kana Cruz and colleagues, with an educational philomena from [employer]. Thrive Questionnaire Date Thrive assessed: 12/02/24 I am a: Patient Within the past 12 months, did the food you bought not last and you didn't have the money to get more?: Never true Within the past 12 months, did you worry whether your food would run out before you got money to buy more?: Never true THRIVE Score: 0 AUDIT C Alcohol Use Questionnaire (AUDIT-C) 1. How often do you have a drink containing alcohol?: Monthly or less 2. How many drinks containing alcohol do you have on a typical day when you are drinking?: 1 or 2 3. How often do you have six or more drinks on one occasion?: Less than monthly Total Score: 2 MO-7 AMB Questionnaire MO-7 Date MO - 7 assessed: 12/02/24 Feeling nervous, anxious, or on edge: 0 = Not at all Not being able to stop or control worryin = Not at all Worrying too much about different things: 0 = Not at all Trouble relaxin = Not at all Being so restless that it is hard to sit still: 0 = Not at all Becoming easily annoyed or irritable: 0 = Not at all Feeling afraid as if something awful might happen: 0 = Not at all Total MO-7 score (0-4 normal; 5-9 mild; 10-14 moderate; 15-21 severe): 0 Source: Developed by Drs. Buzz Perez, Fatemeh Pardo, Kana Cruz and colleagues, with an educational philomena from [employer]. Physical exam (Primary Care) Vital Signs: Last Vital Signs Temp 97.8 F 12/02/24 10:29 Pulse 66 12/02/24 10:29 BP 122/74 12/02/24 10:29 Pulse Ox 97 12/02/24 10:29 Oxygen Delivery Method Room Air 12/02/24 10:29 BMI result Body Mass Index 32.2 Tobacco/Smoking Status: Tobacco use Status Tobacco use date assessed 12/02/24 12/02/24 10:31 Patient Tobacco Use Status Never used Tobacco 12/02/24 10:31 e-Cigarette/Vaping Use Never Used 12/02/24 10:31 PHQ-9: PHQ-9 Score PHQ-9: Total score 0 12/02/24 11:13 Depression Screening Interpretation: Negative Thrive Assessment: Date of Thrive Assessment Date Thrive assessed 12/02/24 12/02/24 10:31 Coding Level of Care Code New Pt Level 4 (00573) Complex EM visit Add On G2211 Diagnoses Obesity (BMI 30.0-34.9) E66.811 High cholesterol E78.00 Osteopenia, unspecified location M85.80 Osteopenia location: unspecified Tubular adenoma of colon D12.6 Additional Codes PHQ-9 - 95404 - PHQ-9 Billing: Yes ([id number]) Assessment & Plan Assessment & Plan (1) Obesity (BMI 30.0-34.9): Code(s): E66.811 - Obesity, class 1 Category: Medical (2) High cholesterol: Code(s): E78.00 - Pure hypercholesterolemia, unspecified Category: Medical (3) Osteopenia: Code(s): M85.80 - Other specified disorders of bone density and structure, unspecified site Category: Medical Qualifiers: Osteopenia location: unspecified Qualified Code(s): M85.80 - Other specified disorders of bone density and structure, unspecified site (4) Tubular adenoma of colon: Code(s): D12.6 - Benign neoplasm of colon, unspecified Category: Medical Plan 64 year old to establish care past medical, surgical, social reviewed HLD-stable on statin. Labs ordered Upcoming colonoscopy DXA ordered Orders: Orders MM screening mammo BI Today Z12.31 - Encounter for screening mammogram for malignant neoplasm of breast Lipid Panel Today E66.811 - Obesity, class 1, E78.00 - Pure hypercholesterolemia, unspecified, M85.80 - Other specified disorders of bone density and structure, unspecified site, Z13.0 - Encounter for screening for diseases of the blood and blood-forming organs and certain disorders involving the immune mechanism Comprehensive Met. Panel Today E66.811 - Obesity, class 1, E78.00 - Pure hypercholesterolemia, unspecified, M85.80 - Other specified disorders of bone density and structure, unspecified site, Z13.0 - Encounter for screening for diseases of the blood and blood-forming organs and certain disorders involving the immune mechanism Complete Blood Count Auto Diff Today E66.811 - Obesity, class 1, E78.00 - Pure hypercholesterolemia, unspecified, M85.80 - Other specified disorders of bone density and structure, unspecified site, Z13.0 - Encounter for screening for diseases of the blood and blood-forming organs and certain disorders involving the immune mechanism Hemoglobin A1c Today E66.811 - Obesity, class 1, E78.00 - Pure hypercholesterolemia, unspecified, M85.80 - Other specified disorders of bone density and structure, unspecified site, Z13.0 - Encounter for screening for diseases of the blood and blood-forming organs and certain disorders involving the immune mechanism XR DEXA axial skeleton Today E66.811 - Obesity, class 1, E78.00 - Pure hypercholesterolemia, unspecified, M85.80 - Other specified disorders of bone density and structure, unspecified site, Z13.0 - Encounter for screening for diseases of the blood and blood-forming organs and certain disorders involving the immune mechanism Medications: New Zepbound (tirzepatide (weight loss)) for 4 weeks 2.5 mg (0.5 mL) subcut QWEEK 2 mL 0RF NS E66.811 - Obesity, class 1, E78.00 - Pure hypercholesterolemia, unspecified ondansetron HCl 4 mg PO Q8H PRN 30 tabs 0RF nausea and vomiting Changed From atorvastatin 10 mg PO .THREE TIMES PER WEEK To atorvastatin 10 mg PO .THREE TIMES PER WEEK 90 days 30 tabs 3RF
== END 2024-12-02 11:45 | disposition home or self-care (01) ==
LOC: HO.HMCHD 10:54
PROVIDERS: PCP Internal Medicine; Visit Provider Internal Medicine
DX: E66.811 Obesity, class 1 (principal); E78.00 Pure hypercholesterolemia, unspecified; M85.80 Other specified disorders of bone density and structure, unspecified site; D12.6 Benign neoplasm of colon, unspecified

== ENCOUNTER → 2024-12-02 10:54 | Outpatient (BNVA) | payer OTHER, SELFPAY | PROVIDERS: PCP Internal Medicine; Visit Provider Internal Medicine | DX: E66.811 Obesity, class 1 (principal); E78.00 Pure hypercholesterolemia, unspecified; M85.80 Other specified disorders of bone density and structure, unspecified site; D12.6 Benign neoplasm of colon, unspecified; Z68.32 Body mass index [BMI] 32.0-32.9, adult | CPT/HCPCS: 96127 ==

== ENCOUNTER 2024-12-07 10:28 | Outpatient (REF) | payer OTHER, SELFPAY ==
[2024-12-07 13:11] LABS: MANUAL DIFF FLAG NO
[2024-12-07 13:37] LABS: Basophils Percent Auto 0.7 % (0-2); Eosinophils Absolute Auto 0.1 X10*3/uL (0.0-0.4); Eosinophils Percent Auto 1.1 % (0-4); Hematocrit 39.2 % (37.0-47.0); Hemoglobin 13.2 g/dl (12.0-16.0); Imm Gran Abs Auto 0.01 X10*3/uL (0.00-0.03); Imm Gran Pct Auto 0.2 % (0.0-0.4); Lymphocytes Absolute Auto 1.4 X10*3/uL (1.2-4.9); Mean Corpuscular HGB Conc 33.7 g/dl (31.0-35.0); Mean Corpuscular Hemoglobin 31.1 pg (27.0-33.0); Mean Corpuscular Volume 92.2 fL (80.0-98.0); Mean Platelet Volume 10.1 fL (9.4-12.3); Monocytes Absolute Auto 0.3 X10*3/uL (0.1-1.2); Monocytes Percent Auto 6.6 % (2-11); Neutrophils Absolute Auto 2.8 x10*3/uL (2.0-8.3); Neutrophils Percent Auto 61.4 % (45-73); Platelet Count 294 X10*3/uL (160-400); Red Blood Count 4.25 X10*6/uL (4.20-5.50); White Blood Count 4.5 X10*3/uL (4.8-10.8)
[2024-12-07 14:01] LABS: Estimated Average Glucose 114 mg/dL; Hemoglobin A1c % 5.6 % (<6.0); Total Hemoglobin (HGBA1C) 3460.3871 umol/L
[2024-12-07 14:13] LABS: Alanine Aminotransferase 18 U/L (0-31); Albumin Level 4.7 g/dL (3.5-5.0); Alkaline Phosphatase 48 U/L (39-117); Anion Gap 11 (12-20); Aspartate Amino Transferase 21 U/L (5-31); Bilirubin Total 0.7 mg/dL (0.0-1.0); Blood Urea Nitrogen 15 mg/dL (9-16); Calcium 9.5 mg/dL (8.4-10.2); Carbon Dioxide 28 mmol/L (22-29); Chloride 105 mmol/L (96-108); Cholesterol 200 mg/dL (<200); Estimated Glomerular Filt Rate > 60; Glucose Random 99 mg/dL (60-115); HDL Cholesterol 59 mg/dL (>40); LDL Cholesterol Calculated 121 mg/dL (<100); Potassium 4.2 mmol/L (3.3-5.1); Sodium 140 mmol/L (135-145); Total Protein 7.8 g/dL (6.5-8.0); Triglycerides 100 mg/dL (<150)
== END 2024-12-07 10:29 | disposition home or self-care (01) ==
LOC: HO.HMGCLDS 10:28
PROVIDERS: PCP Internal Medicine; Visit Provider Internal Medicine
DX: E66.811 Obesity, class 1 (principal); E78.00 Pure hypercholesterolemia, unspecified; M85.80 Other specified disorders of bone density and structure, unspecified site; Z13.0 Encounter for screening for diseases of the blood and blood-forming organs and certain disorders involving the immune mechanism; Z13.1 Encounter for screening for diabetes mellitus
CPT/HCPCS: 36415; 80053; 80061; 83036; 85025

== ENCOUNTER 2024-12-24 11:29 | Day surgery (SDC) | payer OTHER, SELFPAY ==
--- NOTE | 2024-12-23 10:12 | P.CONAN_ITS ---
Documented by User: Nichole Suarez NP 12/23/24 10:12 HPI - Anesthesia Eval Consult details Narrative: 64yo F for Colonoscopy Anesthesia Pre-Procedure Meds Is the patient on any of the following meds?: GLP1/DPP4 PMFSH Active Problems Active Problems: All Active Problems Screening, deficiency anemia, iron (Acute) Obesity (BMI 30.0-34.9) (Acute) PONV (postoperative nausea and vomiting) (Acute) Family history of colon cancer in mother (Acute) Pre-op examination (Acute) Bursitis of right knee (Acute) Tubular adenoma of colon (Acute) Osteopenia (Acute) High cholesterol (Acute) Allergic rhinitis (Acute) Bacterial conjunctivitis of both eyes (Acute) Past Medical History Medical History Melanoma of skin Hypercholesterolemia Family history of colon cancer Family History Family History Mother History of colon cancer, Onset Age: 77 Mother No problems noted. Father No problems noted. 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 Cognitive needs: No Hearing needs: No Vision needs: Yes (reading glasses) Meds Allergies Allergy/AdvReac Type Severity Reaction Status Date / Time No Known Allergies (No Known Allergy Verified 12/02/24 10:30 Allergies*) Assessment and Plan Assessment Anesthesia Assessment: Chart Reviewed Final Anesthetic Review Family History of Problems with Anesthesia: No History of Problems with Anesthesia: No (Nausea and vomiting with conscious sedation for colonoscopy) Documented by User: Shanon Murphy MD 12/24/24 13:07 [facility] Past Medical History Medical History Melanoma of skin Hypercholesterolemia Family history of colon cancer Family History Family History Mother History of colon cancer, Onset Age: 77 Mother No problems noted. Father No problems noted. 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 Cognitive needs: No Hearing needs: No Vision needs: Yes (reading glasses) Meds Allergies Allergy/AdvReac Type Severity Reaction Status Date / Time No Known Allergies (No Known Allergy Verified 12/02/24 10:30 Allergies*) Exam Airway Mallampati Class: II TM Dist: >3cm Neck ROM: Full Heart: rrr Lungs: cta Assessment and Plan Assessment Anesthesia Assessment: Anesthesia Plan Discussed Final Anesthetic Review NPO: Yes ASA Class: II Final Preanesthetic Review: No Changes in Pt Med Stat, Meds/Allgs Chart Reviewed and Consent Obtained/Reviewed Patient Risk: Low Procedure Risk: Low Anesthetic Plan Anesthetic Plan: MAC: Disposition: Standard PACU
[2024-12-24 11:48] VITALS: BP 116/76; PULSE 82; RESP 16; TEMP 36.4; O2SAT 99; BMI 31.3
[2024-12-24] MEDS: Lactated Ringers 1,000 ML 100 ML IVCONT (11:51)
--- NOTE | 2024-12-24 12:08 | MHC.SHP ---
Pre-Procedural Eval Section A - 24 Hr Update-Section A only Date of Service: 12/24/24 The patient is an INPATIENT: No The patient has been examined within 24 hours of the surgical procedure. The History & Physical has been completed within 30 days and I have reviewed it.: No Section B - Complete if H&P > 30 days Chief Complaint: Surveillance for colon polyps, rectal bleeding Relevant Family History (Specify if Yes): Yes Relevant Social History: None Present Medications: see Short Stay Collaborative assessment Medical History: Significant History (Hypercholesterolemia Family history of colon cancer) History of Previous Operations: Relevant previous surgery/procedure and date(s) (History of colonoscopy) Allergies: Allergies Allergy/AdvReac Type Severity Reaction Status Date / Time No Known Allergies (No Known Allergy Verified 12/02/24 10:30 Allergies*) Review of Systems Sugical H&P ROS: Negative: Constitution, Cardiovascular, Respiratory and Gastrointestinal Exam Surgical H&P Exam: Normal: Heart, Normal: Lungs, Normal: Extremities and Normal: Abdomen Plan Diagnosis/Plan: Unchanged I have reviewed the history and physical and performed a pertinent physical examination on my patient. No changes have occurred unless specified. Time Spent With Patient Time: Total time managing care of this patient today ____ minutes.
[2024-12-24 14:02] VITALS: BP 128/68; PULSE 65; RESP 16; TEMP 36.1; O2SAT 98
--- NOTE | 2024-12-24 14:02 | HO.OPN-COLON ---
Colonoscopy Operative Note Operative Note Date of Service: 12/24/24 Narrative: COLONOSCOPY TILL CECUM WITH SNARE POLYPECTOMY, SUBMUCOSAL INJECTION AND HEMOCLIP PLACEMENT Pre-op diagnosis: Colon cancer screening, rectal bleeding. Post-op diagnosis: Colon polyps , Diverticulosis, hemorrhoids Endoscopist:? Annamaria Ogden MD Anesthesia:?MAC Consent: Indications for the procedure and potential complications of bleeding, perforation, reaction to medications and missed diagnosis were discussed with the patient and informed consent was obtained. Instrument: Olympus PCF H 190 L variable stiffness pediatric colonoscope Monitoring: Vital signs and clinical assessment, intermittent blood pressure monitoring, continuous EKG monitoring, Pulse oximetry and Carbon Dioxide monitoring were done throughout the procedure. Please see anesthesia flowsheet. Colon withdrawl time was 35 minutes. Procedure: The patient was placed in the left lateral decubitis position and pre-procedure medications were administered. After a digital rectal examination of the ano-rectum, the video colonoscope was inserted into the rectum and advanced through the colon to the cecum. The colonoscope was slowly withdrawn in a retrograde panoramic fashion and the colon mucosa was carefully examined including a retroflexed view of the rectum. Findings and interventions are described below. Procedure Difficulty: without difficulty Findings: Terminal Ileum: Not evaluated Cecum: A 12-15 mm flat polyp adjacent to the appendicular orifice. Polyp was raised with 5 cc of Eleview and removed piecemeal with a stiff hot snare. Polypectomy margins were treated with cautery using the snare tip. Ascending Colon: A 3 x 1.5 cms elongated flat polyp in the proximal AC. Polyp was raised with 4 cc of Eleview and removed piecemeal with a stiff hot snare. Polypectomy site was closed with 1 hemoclip. Transverse Colon: Normal Descending Colon: Normal Sigmoid Colon: Moderate diverticulosis Rectum: Normal Ano-rectum: Moderate internal hemorrhoids Colon preparation: Good after copious irrigation. [place] Bowel Preparation Scale Right colon; 2 Transverse colon: 2 Left colon; 1 (0 = Unprepared colon segment with mucosa not seen due to solid stool that cannot be cleared. 1 = Portion of mucosa of the colon segment seen, but other areas of the colon segment not well seen due to staining, residual stool and/or opaque liquid. 2 = Minor amount of residual staining, small fragments of stool and/or opaque liquid, but mucosa of colon segment seen well. 3 = Entire mucosa of colon segment seen well with no residual staining, small fragments of stool or opaque liquid) Impression and Post Procedure Diagnosis: Colonoscopy Findings: Two medium sized polyps were removed Moderate diverticulosis seen in the sigmoid colon Moderate hemorrhoids on retroflexed exam - likely source of rectal bleeding. Plan: I will send a letter with biopsy results. Repeat Colonoscopy in 6 months if polyps are adenomatous (to check polypectomy sites in the cecum and proximal ascending colon) and due to sub-optimal prep in the left colon. Above findings were reviewed with the patient and relevant handouts were given and the discharge area. BIOPSIES SHOWED: A. Colon, cecum, polypectomy: Sessile serrated polyp/lesion without dysplasia. B. Colon, ascending, polypectomy: Sessile serrated polyp/lesion without dysplasia Letter sent to the patient with biopsy results. Patient was placed on the colonoscopy recall list for repeat colonoscopy in 6 months.
[2024-12-24 14:17] VITALS: BP 123/69; PULSE 67; RESP 16; O2SAT 99
[2024-12-24 14:32] VITALS: BP 130/78; PULSE 65; RESP 16; TEMP 36.2; O2SAT 99
== END 2024-12-24 14:59 | disposition home or self-care (01) ==
PROVIDERS: PCP Internal Medicine; Visit Provider Internal Medicine Gastroenterology
PROC: 0DJD8ZZ Inspection of Lower Intestinal Tract, Via Natural or Artificial Opening Endoscopic (ICD-10-PCS; CPT 45378; principal; 2024-12-24 13:20)
DX: Z12.11 Encounter for screening for malignant neoplasm of colon (principal); D12.0 Benign neoplasm of cecum; D12.2 Benign neoplasm of ascending colon; K57.30 Diverticulosis of large intestine without perforation or abscess without bleeding; K64.8 Other hemorrhoids; Z80.0 Family history of malignant neoplasm of digestive organs; K62.5 Hemorrhage of anus and rectum; E78.00 Pure hypercholesterolemia, unspecified; Z79.02 Long term (current) use of antithrombotics/antiplatelets; Z79.899 Other long term (current) drug therapy
CPT/HCPCS: 45385; 45381; 88305; J2003; J2704

== ENCOUNTER → 2024-12-24 11:29 | Outpatient (BNV) | payer OTHER, SELFPAY | PROVIDERS: PCP Internal Medicine; Visit Provider Internal Medicine Gastroenterology | DX: Z12.11 Encounter for screening for malignant neoplasm of colon (principal); K63.5 Polyp of colon; K57.90 Diverticulosis of intestine, part unspecified, without perforation or abscess without bleeding; K64.8 Other hemorrhoids | CPT/HCPCS: 45381; 45385 ==

== ENCOUNTER 2025-03-11 08:58 | Outpatient (REF) | payer OTHER, SELFPAY ==
--- NOTE | ~2025-03-11 | XR_ITS ---
EXAMINATION: XR KNEE 4 OR MORE VIEWS LEFT HISTORY: M25.562 - Pain in left knee COMPARISON: There are no prior studies available for comparison. FINDINGS: Four views of the left knee are submitted. Osseous mineralization is normal. There is no fracture or dislocation. The joint spaces are preserved. There is a small suprapatellar joint effusion. XR/XR knee LT 4V IMPRESSION: Small joint effusion. Otherwise unremarkable examination of the left knee. Electronically signed by: Buzz Stewart MD 03/11/2025 09:44 AM EDT
== END 2025-03-11 08:59 | disposition home or self-care (01) ==
LOC: HO.HMGCX 08:58
PROVIDERS: PCP Internal Medicine; Visit Provider Physician Assistant
DX: M25.562 Pain in left knee (principal); M25.462 Effusion, left knee
CPT/HCPCS: 73564

== ENCOUNTER 2025-03-11 08:58 | Outpatient (AMB) | payer OTHER, SELFPAY ==
--- NOTE | 2025-03-11 09:01 | MHC.OFFWIV ---
Intake Vital Signs 03/11/25 09:02 Height 5 ft 3 in Weight 169 lb BMI 29.9 BP 106/62 Blood Pressure Location Rt brachial Position Sitting Pulse 83 Pulse Source Pulse Oximeter Temp 98.1 F Temp Source Oral Pulse Oximetry (%) 98 Oxygen Delivery Method Room Air Intake Visit Reasons: EP pain behind LT knee, limited range of motion Intake Note: pt presents with pain, mild swelling and decreased ROM to left popliteal- pt states she felt a pop to her anterior knee a couple weeks ago while on a walk Patient Tobacco Use Status: Never used Tobacco Allergies No Known Allergies (No Known Allergies*) Allergy (Verified 03/11/25 09:05) Do you need a note to return to daycare/school/sports/work: Yes HPI HPI Comments History of Present Illness Details History of Present Illness - The patient is a 64-year-old female presenting with pain behind the left knee. - The pain began after extensive walking during the summer, with a notable pop but no pain occurring while walking in [place]. - The pain is severe and sometimes radiates down the leg, limiting the ability to lift the leg fully. - The patient has not tried ibuprofen but has been using ice, which provides temporary relief. - The pain worsens at night, disrupting sleep, and is aggravated by activities such as climbing stairs. 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 - denies swelling in the left calf, and the patient denies any kidney issues. Physical Exam General: Cooperative, healthy appearing, comfortable, no acute distress and well developed Orientation: Patient oriented x3 Limitations: Limited range of motion in the left leg due to pain Head: Normal to inspection Ears: Hearing grossly normal bilaterally Nose: Normal External nose present Face and sinus: Normal facial exam Eyes: Appearance normal, both eyes and all related structures Neck: Normal visual inspection and Yes full ROM Respiratory: Normal respiratory effort and able to speak in complete sentences. Skin: No rashes or lesions noted Neuro: Patient oriented x3 Extremities: Full ROM left knee (with pain on flexion), TTP posterior knee, no joint instability, no skin changes or edema, no notable variscocities, negative patellar ballottement PFSH Medical History Melanoma of skin Hypercholesterolemia Family history of colon cancer Surgical History H/O melanoma excision Hx of tonsillectomy History of colonoscopy Family History Mother History of colon cancer, Onset Age: 77 Mother No problems noted. Father No problems noted. 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 Cognitive needs: No Hearing needs: No Vision needs: Yes (reading glasses) Review of Systems Const All systems reviewed & are unremarkable except as noted in HPI and below Physical Exam Vital Signs: Last Vital Signs Temp 98.1 F 03/11/25 09:02 Pulse 83 03/11/25 09:02 BP 106/62 03/11/25 09:02 Pulse Ox 98 03/11/25 09:02 Oxygen Delivery Method Room Air 03/11/25 09:02 BMI result Body Mass Index 29.9 Assessment & Plan Assessment & Plan (1) Posterior left knee pain: Code(s): M25.562 - Pain in left knee Plan: Patient was informed and verbally consented to the use of an ambient scribe for clinic note documentation during this visit. - Most likely Hudson's Cyst likely 2/2 osteoarthritis aggravated by walking - Recommend use of Aleve (naproxen) as an anti-inflammatory, to be taken every 12 hours with food to prevent stomach upset. - Advise rest and avoidance of activities that exacerbate the pain, such as walking and standing for extended periods. - Placed Vinay wrap for compression to alleviate pain. - Plan to obtain an x-ray of the left knee to rule out structural abnormalities. - Consider referral to Ortho if symptoms do not improve with initial management. Follow up here or with PCP if no improvement. Orders: Orders XR knee LT 4V Today M25.562 - Pain in left knee Coding Level of Care Code Est Pt Level 4 (51880) Diagnoses Posterior left knee pain M25.562
[2025-03-11 09:02] VITALS: BP 106/62; PULSE 83; TEMP 36.7; O2SAT 98; BMI 29.9
--- OUTSIDE RECORDS SUMMARY | 2025-03-11 09:40 | XMS_ITS | Patient Health Record ---
[facility] Organization [facility] Address [address] [place] [id number] Care Team Providers Care Bsw Name Role Phone Buzz Delcid [phone] Reason For Referral No Information Plan Of Treatment No Information
--- OUTSIDE RECORDS SUMMARY | 2025-03-11 09:40 | XMS_ITS | Clinical Summary ---
Author Organization [facility] Address [address] [place] [id number] Phone Care Team Providers Care Mines Safety Engineer Name Role Phone Blair Light MD Primary Care Provider Allergies No known active allergies Medications No known medications Social History Tobacco Use Types Packs/Day Years Used Date Smoking Tobacco: Never Smokeless Tobacco: Never Tobacco Cessation:Counseling Given: Not Answered Alcohol Use Standard Drinks/Week Comments Yes 0 (1 standard drink = 0.6 oz pur e alcohol) Education Answer Date Recorded Are you interested in more education? Not on regine e 03/09/2024 Are you concerned about learning? Not on file 03/09/2024 No 03/09/2024 No 03/09/2024 Digital Access Answer Date Recorded No 03/09/2024 No 03/09/2024 Reliable internet access at home? Not on file 03/09/2024 Device with a working camera? Not on file Intimate Partner Violence Answer Date R ecorded Are you denied basic needs s uch as food, clothing, or medical care? No 09/26/2024 In the past 12 months have y ou been in a relationship with a person who hurts, threatens, or tries to control you? No 09/26/2024 Are you denied basic needs s uch as food, clothing, or medical care? No 09/26/2024 In the past 12 months have y ou been in a relationship with a person who hurts, threatens, or tries to control you? No 09/26/2024 Comments Unknown Sex and Gender Information Value Date Recorded Sex Assigned at Female 09/26/2024 12:26 PM EDT Legal Sex Female 9:55 AM EDT Gender Identity Female 09/26/2024 12:26 PM EDT Sexual Orientation Not on file Last Filed Vital Signs Vital Sign Reading Time Taken Comments Blood Pressure 140/73 09/26/2024 3:07 PM EDT Pulse 63 09/26/2024 3:07 PM EDT Temperature 36.7 C (98.1 F) 09/26/2024 3:13 PM EDT Respiratory Rate 13 09/26/2024 3:07 PM EDT Oxygen Saturation 99% 09/26/2024 3:07 PM EDT Inhaled Oxygen Concentration - - Weight 83.9 kg (185 lb) 09/26/2024 12:25 PM EDT Height 160 cm (5' 3 ) 09/26/2024 12:25 PM EDT Body Mass Index 32.77 09/26/2024 12:25 PM EDT Plan of Treatment Health Maintenance Due Date Last Done Comments Adult Td,Tdap Booster 1959 LIPID PANEL 1959 DEPRESSION SCREENING 1971 HEPATITIS C SCREENING 1977 HIV ONE-TIME SCREENING (18-6 5 YEARS) 1977 MAMMOGRAM 1999 COLOGUARD 2004 COLONOSCOPY 2004 COLORECTAL CANCER SCREENING 2004 FIT TEST 2004 FOBT 2004 SIGMOIDOSCOPY 2004 VIRTUAL COLONOSCOPY 2004 PNEUMOCOCCAL VACCINES (50+ y ears) (1 of 1 - PCV) 2009 ZOSTER VACCINES (1 of 2) 2009 COVID-19 VACCINE ( - 2023-2 5 season) 2024 OSTEOPOROSIS SCREENING INITI AL (ONE-TIME) 2024 SCREENING FOR DIABETES 09/27/2027 09/26/2024 RSV VACCINE (1 - 1-dose 75+ series) 2034 SMOKING STATUS SCREENING (On ce After 26 Yrs) Completed 09/26/2024 HEPATITIS A VACCINES Aged Out No long er eligible based on patient's age to complete this topic HIB VACCINES Aged Out No longer eligi ble based on patient's age to complete this topic MENINGOCOCCAL VACCINES (ACWY) Aged Out No longer eligible based on patient's age to complete this topic MENINGOCOCCAL VACCINES (B) Aged Out N o longer eligible based on patient's age to complete this topic Medical Devices Not on file Insurance [address] [address] [place] [address] [place] [address] [facility] HMO Care Teams Mines Safety Engineer Relationship Specialty Start Date End Date Blair Light MD [address] [place] [id number] [address] [place] [id number] PCP - General Internal Medicine 03/09/24 Additional Source Comments The information contained in this document represents components of the legal health record. It is not the complete legal health record.[facility]
== END 2025-03-11 09:50 | disposition home or self-care (01) ==
PROVIDERS: PCP Internal Medicine; Visit Provider Physician Assistant
DX: M25.562 Pain in left knee (principal)

== ENCOUNTER → 2025-03-11 09:31 | Outpatient (BNV) | payer OTHER, SELFPAY | PROVIDERS: PCP Internal Medicine; Visit Provider Radiology Diagnostic Radiology | DX: M25.562 Pain in left knee (principal) | CPT/HCPCS: 73564 ==

== ENCOUNTER 2025-03-14 09:47 | Emergency (ER) | payer OTHER, SELFPAY ==
--- NOTE | ~2025-03-14 | XR_ITS ---
EXAMINATION: XR KNEE, LEFT CLINICAL INFORMATION: pain, injury COMPARISON: None available. TECHNIQUE: Four views of the left knee. FINDINGS: There is no joint effusion. Joint spaces are preserved. No fracture line is evident. XR/XR knee LT 4V IMPRESSION: Normal left knee. Electronically signed by: Seun Garsia MD 03/14/2025 10:55 AM EDT
[2025-03-14 09:58] VITALS: BP 121/68; PULSE 69; RESP 16; TEMP 35.8; BMI 30.1
--- NOTE | 2025-03-14 10:03 | ED_ITS ---
HPI - General Adult General Chief complaint: Extremity Injury, Lower Stated complaint: left knee pain Time Seen by Provider: 03/14/25 10:12 Source: patient and family (patient's daughter) Mode of arrival: wheelchair Limitations: no limitations History of Present Illness ED Provider: Traci Rosas PA-C HPI narrative: Patient is a 64 year old assigned female at with a history of osteopenia, allergic rhinitis, bursitis of right knee presenting to the emergency department with left knee pain. Patient states that this morning she pushed off her left leg while at work and heard a snap with sharp pain radiating from her left knee down her left leg. Patient reports difficulty with ambulation due to pain. Patient states that a history of posterior left knee pain with increased act ivity over the summer. She reports she heard a pop mid-February which prompted her to be evaluated at urgent care. X-ray at urgent care showed a left knee effusion. Since then, she has been taking Tylenol and RICE with some relief until the new injury this morning. Patient denies any other symptoms. Related Data Previous Rx's ?Medication ?Instructions ?Recorded atorvastatin 10 mg tablet 10 mg PO .COMPLEX 90 days #3 0 tabs 12/02/24 ondansetron HCl 4 mg tablet 4 mg PO Q8H PRN for nausea/vomiting #30 tabs semaglutide (weight loss) 0.5 0.5 mg (0.5 mL) subcut Q WEEK #6 mL 02/11/25 mg/0.5 mL subcutaneous pen injector (Wegovy) Allergies Allergy/AdvReac Type Severity Reaction Status Date / Time No Known Allergies (No Known Allergy Verified 03/14/25 10:03 Allergies*) Review of Systems Constitutional: Constitutional: Reports as per HPI Eyes: Eyes: Reports as per HPI ENT: Reports as per HPI Cardiovascular: Cardiovascular: Reports as per HPI Respiratory: Respiratory: Reports as per HPI Gastrointestinal: Gastrointestinal: Reports as per HPI Genitourinary: Genitourinary: Reports as per HPI Musculoskeletal: Musculoskeletal: Reports as per HPI Integumentary/Breasts: Skin/Breast: Reports as per HPI Neurologic: Reports as per HPI Psychiatric: Psychiatric: Reports as per HPI Endocrine: Endocrine: Reports as per HPI Hematologic/Lymphatic: Hematologic/Lymphatic: Reports as per HPI Allergic/Immunologic: Allergic/Immunologic: Reports as per HPI [facility] Past Medical History Attestation statement: The following information was validated with the patient. (all information validated with the patient's daughter) Source: old records reviewed, obtained from family (patient's daughter provided additional history and confirmed the history provided by the patient.) and nursing notes reviewed Medical History Melanoma of skin Hypercholesterolemia Family history of colon cancer Surgical History H/O melanoma excision Hx of tonsillectomy History of colonoscopy Family History Family History Mother History of colon cancer, Onset Age: 77 Mother No problems noted. Father No problems noted. 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 Cognitive needs: No Hearing needs: No Vision needs: Yes (reading glasses) Physical Exam ED Vital Signs: Vital Signs - 24 hr 03/14/25 09:58 03/14/25 12:00 03/14/25 12:57 Temperature 96.4 F L 98.0 F 98.0 F Pulse Rate 69 77 77 Respiratory Rate 16 16 16 Blood Pressure 121/68 116/47 L 116/47 L Pulse Oximetry 100 100 Oxygen Delivery Method Room Air Room Air Room Air BMI result Body Mass Index 30.1 Const General: cooperative, no acute distress, alert and awake Nutritional Appearance: well nourished Orientation/consciousness: patient oriented x3 HENMT Head: Yes normal to inspection and Yes atraumatic Ears: hearing grossly normal bilaterally and external ears normal General nose exam: Normal external nose present, no nasal discharge noted and no epistaxis Face and sinus: Yes normal facial exam, No abrasion and No laceration Mouth: Normal oral and palatal mucosa present, no drooling and no muffled voice Eyes General: appearance normal, both eyes and all related structures Periorbital: periorbital findings normal Eyelids: Yes eyelids normal Conjunctivae: conjunctivae normal Pupils: Equal, round and reactive pupils present EOM: EOMs intact bilaterally Neck Neck: Yes normal visual inspection and Yes full ROM Resp Effort & Inspection: normal respiratory effort and able to speak in complete sentences Neuro General: patient oriented x3, moves all extremities and CN's II-XI intact bilaterally Cranial nerves: Yes Equal, round and reactive pupils present Cognition (Neuro): normal cognition Extrem General: Yes normal to inspection, Yes capillary refill normal and Yes normal exam except as noted Left lower extremity: knee Details: abnormal to inspection Details: patella not obviously dislocated and not erythematous, abnormal ROM (limited knee flexion secondary to pain, pain with active ROM) and Marian's Test (pain with Marian's test); no tenderness Psych Appearance: grossly normal Mental Status: mental status grossly normal Affect: normal affect Attitude: cooperative Thought process: Normal thought process present Thought content: Normal thought content present Insight: Good insight present (Psych) Course Course Course Narrative: Rapid medical examination performed in triage by Traci Rosas PA-C. Patient is a 64 year old assigned female at presenting to the emergency department with left knee pain. Patient states she has been having issues with it and was hanging something in her classroom this morning when she felt a pop and has even more pain. Detailed physical exam and review of systems are deferred to the medical technologist. Imaging ordered. Patient placed back in the waiting room pending room availability and results. Medications Administered Discontinued Medications Generic Name Dose Route Start Last Admin Trade Name Freq PRN Reason Stop Dose Admin Ketorolac Tromethamine 15 mg 03/14/25 11:15 03/14/25 11:24 Ketorolac Tromethamine 15 Mg/Ml Vial IM 03/14/25 11:16 15 mg ONCE ONE Administration Procedures Orthopedic Splinting/Casting Left knee: Side: left Lower Extremity Injury Location: knee Lower Extremity Immobilizer: knee immobilizer Other Orthopedic Equipment: crutches Medical Decision Making Medical Decision Making MDM Narrative: Patient is a 64 year old assigned female at with a history of osteopenia, allergic rhinitis, bursitis of right knee presenting to the emergency department with left knee pain. Patient's physical exam was as noted in the physical exam portion of this note. Patient's left knee x-ray showed no acute process. Patient's clinical presentation is most consistent with a left knee sprain vs. an internal left knee injury. I explained my physical exam findings as well as all test results to the patient and the patient's daughter. I answered all questions asked by the patient and the patient's daughter. Patient's left knee was placed in a knee immobilizer, without incident. Patient's left lower extremity PMS was intact prior to and after immobilizer placement. Patient was given crutches with crutch instructions and demonstrated proper use while in the department. I stressed the importance of the patient taking her medication as directed (either prescribed or as the over the counter packaging recommends). I stressed the importance of the patient following up with her primary care provider, the orthopedic team, and given this was a work place injury - work connection. I stressed the importance of the patient returning to the emergency department immediately if her symptoms were to worsen or if she were to develop any dizziness, shortness of breath, difficulty breathing, chest pain, blurry vision, loss of vision, nausea, vomiting, abdominal pain, fever, chills, back pain, or any other complaints. Patient and the patient's daughter verbalized agreement and understanding with this treatment plan and discharge. Differential Diagnosis Differential Diagnoses: The differential diagnosis associated with the presentation includes Left knee sprain Left knee strain Left knee injury Left meniscus injury Admission/Observation Consideration of admission/observation: Escalation of care including admission/observation considered Patient would have been admitted to the hospital had her work up had any findings where hospital admission was appropriate and her clinical presentation warranted hospital admission. Independent Interpretation I performed an independent interpretation of an: Plain X-Ray Interpretation: My interpretation is in agreement with the radiologist's impression of this imaging study. Reason for Exam: pain, injury EXAMINATION: XR KNEE, LEFT CLINICAL INFORMATION: pain, injury COMPARISON: None available. TECHNIQUE: Four views of the left knee. FINDINGS: There is no joint effusion. Joint spaces are preserved. No fracture line is evident. XR/XR knee LT 4V IMPRESSION: Normal left knee. Electronically signed by: Seun Garsia MD 03/14/2025 10:55 AM EDT RP Dictated By: Seun Garsia MD Signed By: Electronically signed by Seun Garsia MD 03/14/25 1055 Radiology Impression Discussion of test interpretation with radiology: I have reviewed the radiologist's reading. Independent Historian Clinical information obtained from an independent historian. History obtained from or confirmed by: Other (patient's daughter provided additional history and confirmed the history provided by the patient. ) Discharge Plan Discharge Clinical Impression: Knee sprain Patient Disposition: Home, Self-Care Instructions: Knee Sprain (DC), Crutch Instructions (ED), P.R.I.C.E. Treatment (ED) Additional Instructions: Your x-ray showed no acute process. I'm suspicious you have an internal knee injury. You may use the immobilizer for comfort / stabilization as well as the crutches. Follow up with the orthopedic team. Given this was a work place injury, follow up with work connection. IF you are prescribed home medications and/or you are taking over the counter medications at home - it is very important you continue to do so as prescribed / directed unless told otherwise. Follow up with your primary care provider. Return to the emergency department immediately if your symptoms worsen or if you develop any numbness, tingling, dizziness, shortness of breath, difficulty breathing, chest pain, blurry vision, loss of vision, nausea, vomiting, abdominal pain, fever, chills, back pain, or any other complaints. Please see the information below about our Patient Portal. If you are not yet enrolled in the [facility] Patient Portal, you will receive an enrollment email invitation following your visit to any [facility]/formerly [facility] setting. You may also self-enroll in the Patient Portal by visiting our website: [email or web address] The following information is required to access the Patient Portal: - Your [facility] Medical Record Number - Your personal home email address (must match what is in your electronic medical record, Registration staff can assist with this) - Name - Date of Capabilities of the Patient Portal: - Message some providers - View upcoming appointments - Access your health summary, medical history, and visit history - View current conditions and allergies - View procedure and lab results - View your medications, including guidelines, side effects, and precautions - Complete pre-appointment questionnaires requested by your provider - Ready summary reports of your office visits and procedures To access the Patient Portal Mobile [employer], follow these directions: - Search [employer] in the Kw[employer] Store or Google Play Store - Download the [employer] - Search for [facility] - Enter your login/password Prescriptions: No Action ondansetron HCl 4 mg tablet 4 mg PO Q8H PRN (Reason: for nausea/vomiting) Qty: 30 1RF Wegovy 0.5 mg/0.5 mL pen injector 0.5 mg subcut QWEEK Qty: 6 0RF atorvastatin 10 mg tablet 10 mg PO .COMPLEX 90 Days Qty: 30 3RF Rx Instructions: Frequency: THREE TIMES PER WEEK Referrals: [facility] Orthopedic Surgeons [Provider Group] Referral Note: Call to establish and follow up with the orthopedic team. [facility] [Provider Group] Referral Note: Call to establish and follow up with work connection. Rosana Rojas MD [Primary Care Provider, Endocrinology] Stand Alone Forms: Work/School Release Interventions: ED Discharge Assessment Last Done: 03/14/25 12:57 Discharge Date/Time: 03/14/25 12:59 Print Language: Chinese
--- NOTE | 2025-03-14 10:23 | PC.NURSE ---
Addendum entered by Mildred Vo RN 03/14/25 10:28: Knee xray at showed a small joint effusion. Addendum entered by Mildred Vo RN 03/14/25 10:24: patient is a 64-year-old female presenting with pain behind the left knee was seen at a local . Given a knee brace. Pain began after extensive walking during the summer, with a notable pop but no pain occurring while walking in [place]. pain is severe and sometimes radiates down the leg, limiting the ability to lift the leg fully. The pain worsens at night, disrupting sleep, and is aggravated by activities such as climbing stairs. 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 Unable to weight bear at this time. Lungs clear bilat. Respirations even and non-labored. Abdomen soft, non-tender. Positive pedal pulses with no edema noted. Original Note: Medical History Hypercholesterolemia Family history of colon canc
[2025-03-14 12:00] VITALS: BP 116/47; PULSE 77; RESP 16; TEMP 36.7; O2SAT 100
--- OUTSIDE RECORDS SUMMARY | 2025-03-14 12:45 | XMS_ITS | Patient Health Record ---
Author Organization [facility] Address [address] [place] [id number] Care Team Providers Care Reference Librarian Name Role Phone Buzz Delcid [phone] Reason For Referral No Information Plan Of Treatment No Information
--- OUTSIDE RECORDS SUMMARY | 2025-03-14 12:45 | XMS_ITS | Clinical Summary ---
Author Organization [facility] Address [address] [place] [phone] Phone Care Team Providers Care Supervisor Unloading Name Role Phone Blair Light MD Primary [...] 2009 ZOSTER VACCINES (1 of 2) 2009 OSTEOPOROSIS SCREENING INITI AL (ONE-TIME) 2024 INFLUENZA VACCINE (#1) 2025 COVID-19 VACCINE ( - 2023-2 5 season) 2025 SCREENING FOR DIABETES 09/27/2027 09/26/2024 RSV VACCINE [...] Medical Devices Not on file Insurance HMO [address] [place], [place] [id number] [facility] [place] [address] [place] [address] [place] [address] [place] [address] HMO [facility] HMO Care Teams Supervisor Unloading Relationship Specialty Start Date End Date Blair Light MD [address] [place] [address] Dr PAEZ [address] [place] [id number] PCP - General Internal Medicine 03/09/24 Additional Source Comments The information contained in this document represents components of the legal health record. It is not the complete legal health record.[facility]
[2025-03-14 12:57] VITALS: BP 116/47; PULSE 77; RESP 16; TEMP 36.7; O2SAT 100
== END 2025-03-14 12:59 | disposition home or self-care (01) ==
PROVIDERS: Emergency Provider Emergency Medicine; PCP Internal Medicine
DX: S83.92XA Sprain of unspecified site of left knee, initial encounter (principal); X58.XXXA Exposure to other specified factors, initial encounter; Y93.9 Activity, unspecified; Y92.9 Unspecified place or not applicable; Y99.9 Unspecified external cause status; M25.562 Pain in left knee
CPT/HCPCS: 73564; 96372; 99284; J1885

== ENCOUNTER → 2025-03-14 10:03 | Outpatient (BNV) | payer OTHER, SELFPAY | PROVIDERS: PCP Internal Medicine; Visit Provider Radiology Diagnostic Radiology | DX: M25.562 Pain in left knee (principal) | CPT/HCPCS: 73564 ==

== ENCOUNTER 2025-05-24 10:58 | Outpatient (REF) | payer OTHER, SELFPAY ==
--- NOTE | ~2025-05-24 | MM_ITS ---
EXAMINATION: DXA BONE DENSITY AXIAL HISTORY: M85.80 - Other specified disorders of bone density and structure, unspec... TECHNIQUE: 140Fire Dual energy absorptiometry (DEXA) of the lumbar spine, total left hip, and femoral neck was performed. COMPARISON: Comparison is made with the prior examinations most recent dated August 2021. FINDINGS: The bone mineral density of the lumbar spine is 1.026 g/cm2, corresponding to a T-score of -1.3, and a Z-score of 0. This is indicative of osteopenia. This represents a BMD change of 7.3% compared to the prior exam. This is statistically significant. The bone mineral density of the left total hip is 1.001 g/cm2, corresponding to a T-score of -0.1, and a Z-score of 0.9. This is indicative of normal bone mineral density. This represents a BMD change of 7.4% compared to the prior exam. This is statistically significant. The bone mineral density of the left femoral neck is 0.832 g/cm2, corresponding to a T-score of -1.5, and a Z-score of -0.2. This is indicative of osteopenia. This represents a BMD change of 6.7% compared to the prior exam. This is statistically significant. FRACTURE RISK: The FRAX index suggests a ten year probability of major osteoporotic fracture of 8.9%, and of hip fracture 1%. MM/XR DEXA axial skeleton IMPRESSION: Based on bone mineral density, and according to World Health Organization (WHO) criteria, the diagnosis is consistent with osteopenia based on lowest T score of -1.5 in the left femoral neck. Bone density is increased from prior exam August 2021. Treatment Recommendations: NOF guidelines recommend consideration for treatment in postmenopausal women and men age 50 and older presenting with the following: -A hip or vertebral (clinical or morphometric) fracture. -T-score less than or equal to -2.5 at the femoral neck or spine after appropriate evaluation to exclude secondary causes. -Low bone mass at the hip or spine and a 10-year fracture probability by FRAX of greater than or equal to 3% for hip fracture or greater than or equal to 20% for major osteoporotic fracture based on the [place] adapted WHO algorithm. Other Recommendations: All treatment decisions require clinical judgment and consideration of individual patient factors, including patient preferences, comorbidities, previous drug use, risk factors not captured in the FRAX model (e.g. frailty, falls, vitamin D deficiency, increased bone turnover, interval significant decline in bone density) and possible under or overestimation of fracture risk by FRAX. Additional medical evaluation for secondary cause of low bone mineral density may be appropriate. FUTURE SCAN RECOMMENDATION: People with diagnosed cases of osteoporosis or at high risk for fracture should have regular bone mineral density tests. For patients eligible for Medicare, routine testing is allowed once every 2 years. The testing frequency can be increased to one year for patients who have rapidly progressing disease, those who are receiving or discontinuing medical therapy to restore bone mass, or have additional risk factors. Statistically, 68% of repeat scans fall within 1 SD (+/- 0.010 g/cm2 for AP spine L1-L4) and 1 SD (+/- 0.012 g/cm2 for femur total) FRAX is a trademark of the [employer] [place] for Metabolic Bone Disease, a World Health Organization (WHO) Collaborating Center. Electronically signed by: Criss Hodgson MD 05/24/2025 01:09 PM PAT
--- NOTE | ~2025-05-24 | MM_ITS ---
EXAMINATION: MM SCREENING DIGITAL BREAST TOMOSYNTHESIS, BILATERAL CLINICAL INFORMATION: Screening. Asymptomatic. COMPARISON: Mammography: Comparison is made with available priors TECHNIQUE: Digital breast mammography with tomosynthesis is performed in both the craniocaudal and mediolateral oblique views along with computer-aided detection (CAD). FINDINGS: The breasts are heterogeneously dense, which may obscure small masses. There are no significant masses, abnormal calcifications, or other abnormalities. MM/MM tomosynthesis screening BI IMPRESSION: No mammographic evidence of malignancy. ASSESSMENT: BI-RADS Category 1: Negative RECOMMENDATION: Routine annual mammography screening. 1 year F/U This examination should not preclude the clinical evaluation of a suspicious palpable abnormality. This patient's information was entered into a reminder system with a target due date for their next mammogram. Electronically signed by: Sneha Alfonso DO 05/27/2025 04:08 PM PAT
--- OUTSIDE RECORDS SUMMARY | 2025-05-25 01:04 | XMS_ITS | Patient Health Record ---
Author Organization [facility] Address [address] [place] [phone] Care Team Providers Care Juvenile Counselor Name Role Phone Buzz Delcid [phone] Reason For Referral No Information Plan Of Treatment No Information
--- OUTSIDE RECORDS SUMMARY | 2025-05-25 01:04 | XMS_ITS | Clinical Summary ---
Author Organization [facility] Address [address] [place] [phone] Phone Care Team Providers Care Concert Manager Name Role Phone Blair Light MD Primary [...] DEPRESSION SCREENING 1971 HEPATITIS C SCREENING 1977 MAMMOGRAM 1999 COLOGUARD 2004 COLONOSCOPY 2004 COLORECTAL CANCER SCREENING 2004 FIT TEST 2004 FOBT 2004 SIGMOIDOSCOPY 2004 VIRTUAL COLONOSCOPY 2004 PNEUMOCOCCAL VACCINES (50+ y ears) (1 of 1 - PCV) 2009 ZOSTER VACCINES (1 of 2) 2009 OSTEOPOROSIS SCREENING INITI AL (ONE-TIME) 2024 INFLUENZA VACCINE (#1) 2025 COVID-19 VACCINE ( - 2024-2 6 season) 2025 SCREENING FOR DIABETES 09/27/2027 09/26/2024 RSV VACCINE (1 - 1-dose 75+ series) 2034 SMOKING STATUS SCREENING (On ce After 26 Yrs) Completed 09/26/2024 HEPATITIS A VACCINES Aged Out No long er eligible based on patient's age to complete this topic HIB VACCINES Aged Out No longer eligi ble based on patient's age to complete this topic IPV VACCINES Aged Out No longer eligi ble based on patient's age to complete this topic MENINGOCOCCAL VACCINES (ACWY) Aged Out No longer eligible based on patient's age to complete this topic MENINGOCOCCAL VACCINES (B) Aged Out N o longer eligible based on patient's age to complete this topic Medical Devices Not on file [place] [address] [place] [address] [place] [place] [id number] [facility] HMO [facility] HMO [facility] HMO Care Teams Concert Manager Relationship Specialty Start Date End Date Blair Light MD [address] [place] [address] Dr PAEZ [address] [place] [phone] PCP - General Internal Medicine 03/09/24 Additional Source Comments The information contained in this document represents components of the legal health record. It is not the complete legal health record.[facility]
== END 2025-05-24 10:59 | disposition home or self-care (01) ==
LOC: HO.MAMMO 10:58
PROVIDERS: PCP Internal Medicine; Visit Provider Internal Medicine
DX: M85.80 Other specified disorders of bone density and structure, unspecified site (principal); Z12.31 Encounter for screening mammogram for malignant neoplasm of breast; E66.811 Obesity, class 1; E78.00 Pure hypercholesterolemia, unspecified; Z13.0 Encounter for screening for diseases of the blood and blood-forming organs and certain disorders involving the immune mechanism
CPT/HCPCS: 77063; 77067; 77080

== ENCOUNTER → 2025-05-24 11:30 | Outpatient (BNV) | payer OTHER, SELFPAY | PROVIDERS: PCP Internal Medicine; Visit Provider Radiology Diagnostic Radiology | DX: E28.39 Other primary ovarian failure (principal) | CPT/HCPCS: 77080 ==

== ENCOUNTER 2025-06-13 07:11 | Day surgery (SDC) | payer OTHER, SELFPAY ==
--- NOTE | 2025-06-08 14:27 | P.CONAN_ITS ---
Documented by User: Serena Pearson NP 06/08/25 14:27 HPI - Anesthesia Eval Consult details Narrative: 65 yr old female for colonoscopy Anesthesia Pre-Procedure Meds Is the patient on any of the following meds?: GLP1/DPP4 PMFSH Active Problems Active Problems: All Active Problems Posterior left knee pain (Acute) Screening, deficiency anemia, iron (Acute) Obesity (BMI 30.0-34.9) (Acute) PONV (postoperative nausea and vomiting) (Acute) Family history of colon cancer in mother (Acute) Pre-op examination (Acute) Bursitis of right knee (Acute) Tubular adenoma of colon (Acute) Osteopenia (Acute) High cholesterol (Acute) Allergic rhinitis (Acute) Bacterial conjunctivitis of both eyes (Acute) Past Medical History Medical History Melanoma of skin Hypercholesterolemia Family history of colon cancer Family History Family History Mother History of colon cancer, Onset Age: 77 Mother No problems noted. Father No problems noted. Family history of problems with anesthesia: No Surgical History Surgical History H/O melanoma excision Hx of tonsillectomy History of colonoscopy History of Problems with Anesthesia: No Social History Social History Housing: House Are you a primary family day carer to a significant other at home: No Do you presently have visiting nurse or other home services: No Alcohol intake: current Alcohol intake frequency: holidays/special occasions only Alcohol type: wine Patient Tobacco Use Status: Never used Tobacco e-Cigarette/Vaping Use: Never Used Have you been hit, kicked, punched, or otherwise hurt by someone within the past year? 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 Cognitive needs: No Hearing needs: No Vision needs: Yes (reading glasses) Meds Allergies Allergy/AdvReac Type Severity Reaction Status Date / Time No Known Allergies (No Known Allergy Verified 06/13/25 07:22 Allergies*) Assessment and Plan Final Anesthetic Review Family History of Problems with Anesthesia: No History of Problems with Anesthesia: No Documented by User: Linda Ervin MD 06/13/25 08:11 [facility] Past Medical History Medical History Melanoma of skin Hypercholesterolemia Family history of colon cancer Family History Family History Mother History of colon cancer, Onset Age: 77 Mother No problems noted. Father No problems noted. Surgical History Surgical History H/O melanoma excision Hx of tonsillectomy History of colonoscopy Social History Social History Housing: House Are you a primary family day carer to a significant other at home: No Do you presently have visiting nurse or other home services: No Alcohol intake: current Alcohol intake frequency: holidays/special occasions only Alcohol type: wine Patient Tobacco Use Status: Never used Tobacco e-Cigarette/Vaping Use: Never Used Have you been hit, kicked, punched, or otherwise hurt by someone within the past year? 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 Cognitive needs: No Hearing needs: No Vision needs: Yes (reading glasses) Meds Allergies Allergy/AdvReac Type Severity Reaction Status Date / Time No Known Allergies (No Known Allergy Verified 06/13/25 07:22 Allergies*) Exam Airway Mallampati Class: II TM Dist: >3cm Neck ROM: Full Heart: rrr Lungs: cta Assessment and Plan Assessment Anesthesia Assessment: Anesthesia Plan Discussed and Chart Reviewed Final Anesthetic Review NPO: Yes ASA Class: III Final Preanesthetic Review: No Changes in Pt Med Stat, Meds/Allgs Chart Reviewed, Consent Obtained/Reviewed and Anes Risks/Benef Reviewed Patient Risk: Intermediate Procedure Risk: Low Anesthetic Plan Anesthetic Plan: MAC: Disposition: Standard PACU
[2025-06-10 07:18] VITALS: BMI 32.2
[2025-06-13 07:21] VITALS: BMI 29.1
[2025-06-13] MEDS: Lactated Ringers 1,000 ML 100 ML IVCONT (07:34)
[2025-06-13 07:43] VITALS: BP 120/72; PULSE 83; RESP 18; TEMP 36.8; O2SAT 98
--- NOTE | 2025-06-13 07:46 | MHC.SHP ---
Pre-Procedural Eval Section A - 24 Hr Update-Section A only Date of Service: 06/13/25 The patient is an INPATIENT: No The patient has been examined within 24 hours of the surgical procedure. The History & Physical has been completed within 30 days and I have reviewed it.: No Section B - Complete if H&P > 30 days Chief Complaint: Surveillance for colon polyps Relevant Family History (Specify if Yes): Yes Relevant Social History: None Present Medications: see Short Stay Collaborative assessment Medical History: Significant History (Hypercholesterolemia Family history of colon cancer) History of Previous Operations: Relevant previous surgery/procedure and date(s) (History of colonoscopy) Allergies: Allergies Allergy/AdvReac Type Severity Reaction Status Date / Time No Known Allergies (No Known Allergy Verified 06/13/25 07:22 Allergies*) Review of Systems Sugical H&P ROS: Negative: Constitution, Cardiovascular, Respiratory and Gastrointestinal Exam Surgical H&P Exam: Normal: Heart, Normal: Lungs, Normal: Extremities and Normal: Abdomen Plan Diagnosis/Plan: Unchanged I have reviewed the history and physical and performed a pertinent physical examination on my patient. No changes have occurred unless specified. Time Spent With Patient Time: Total time managing care of this patient today ____ minutes.
--- NOTE | 2025-06-13 09:34 | P.OPN-COLO_ITS ---
Colonoscopy Operative Note Operative Note Date of Service: 06/13/25 Narrative: COLONOSCOPY TILL CECUM WITH BIOPSIES, SNARE POLYPECTOMY, SUBMUCOSAL INJECTION AND HEMOCLIP PLACEMENT Pre-op diagnosis: Surveillance for colon polyps. Post-op diagnosis:? Colon polyps, Diverticulosis, hemorrhoids Endoscopist:? Annamaria Ogden MD Anesthesia:?MAC Consent: Indications for the procedure and potential complications of bleeding, perforation, reaction to medications and missed diagnosis were discussed with the patient and informed consent was obtained. Instrument: Olympus PCF H 190 L variable stiffness pediatric colonoscope Monitoring: Vital signs and clinical assessment, intermittent blood pressure monitoring, continuous EKG monitoring, Pulse oximetry and Carbon Dioxide monitoring were done throughout the procedure. Please see anesthesia flowsheet. Colon withdrawl time was 31 minutes. Procedure: The patient was placed in the left lateral decubitis position and pre-procedure medications were administered. After a digital rectal examination of the ano-rectum, the video colonoscope was inserted into the rectum and advanced through the colon to the cecum. The colonoscope was slowly withdrawn in a retrograde panoramic fashion and the colon mucosa was carefully examined including a retroflexed view of the rectum. Findings and interventions are described below. Procedure Difficulty: without difficulty Findings: Terminal Ileum: Not evaluated Cecum: A 3-4 mm sessile polyp adjacent to the appendicular orifice - removed with a cold biopsy Ascending Colon: A 5-6 mm sessile polyp in the proximal AC - removed with a cold snare. A 15 to 18 mm flat polyp in the mid ascending colon at 65 cms. Polyp was raised with 5 cc of Eleview and removed with a stiff hot snare. Polypectomy site was closed with 2 hemoclips and marked with Sammie ink. Transverse Colon: Normal Descending Colon: Normal Sigmoid Colon: Two 5-6 mm sessile polyps - removed with a cold snare. Moderate diverticulosis Rectum: Normal Ano-rectum: Moderate non-bleeding internal hemorrhoids Colon preparation: Good after some irrigation. [place] Bowel Preparation Scale Right colon; 3 Transverse colon: 3 Left colon; 2 (0 = Unprepared colon segment with mucosa not seen due to solid stool that cannot be cleared. 1 = Portion of mucosa of the colon segment seen, but other areas of the colon segment not well seen due to staining, residual stool and/or opaque liquid. 2 = Minor amount of residual staining, small fragments of stool and/or opaque liquid, but mucosa of colon segment seen well. 3 = Entire mucosa of colon segment seen well with no residual staining, small fragments of stool or opaque liquid) Impression and Post Procedure Diagnosis: Colonoscopy Findings: Five small to medium sized polyps were removed Moderate diverticulosis seen in the sigmoid colon Moderate hemorrhoids on retroflexed exam. Plan: I will send a letter with biopsy results. Repeat Colonoscopy in 3 years if polyps are adenomatous and due to history of adenomatous colon polyps. Above findings were reviewed with the patient and relevant handouts were given and the discharge area.
[2025-06-13 09:40] VITALS: BP 133/76; PULSE 84; RESP 20; TEMP 36.2; O2SAT 99
[2025-06-13 09:54] VITALS: BP 132/76; PULSE 78; RESP 12; TEMP 36.1; O2SAT 98
== END 2025-06-13 10:13 | disposition home or self-care (01) ==
PROVIDERS: PCP Internal Medicine; Visit Provider Internal Medicine Gastroenterology
PROC: 0DJD8ZZ Inspection of Lower Intestinal Tract, Via Natural or Artificial Opening Endoscopic (ICD-10-PCS; CPT 45378; principal; 2025-06-13 08:30)
DX: Z12.11 Encounter for screening for malignant neoplasm of colon (principal); Z86.0101 Personal history of adenomatous and serrated colon polyps; Z80.0 Family history of malignant neoplasm of digestive organs; D12.2 Benign neoplasm of ascending colon; D12.5 Benign neoplasm of sigmoid colon; K63.5 Polyp of colon; K57.30 Diverticulosis of large intestine without perforation or abscess without bleeding; K64.8 Other hemorrhoids; K59.00 Constipation, unspecified; Z85.820 Personal history of malignant melanoma of skin; E78.00 Pure hypercholesterolemia, unspecified; J30.9 Allergic rhinitis, unspecified; M85.80 Other specified disorders of bone density and structure, unspecified site; Z98.890 Other specified postprocedural states
CPT/HCPCS: 45385; 45380; 45381; 88305; J2003; J2250; J2704

== ENCOUNTER → 2025-06-13 07:11 | Outpatient (BNV) | payer OTHER, SELFPAY | PROVIDERS: PCP Internal Medicine; Visit Provider Internal Medicine Gastroenterology | DX: Z12.11 Encounter for screening for malignant neoplasm of colon (principal); D12.0 Benign neoplasm of cecum; K57.30 Diverticulosis of large intestine without perforation or abscess without bleeding; K64.8 Other hemorrhoids; D12.2 Benign neoplasm of ascending colon; D12.5 Benign neoplasm of sigmoid colon | CPT/HCPCS: 45380; 45385 ==

== ENCOUNTER 2025-06-27 11:18 | Outpatient (AMB) | payer OTHER, SELFPAY ==
--- NOTE | 2025-06-27 11:21 | MHC.PC.OV ---
Vital Signs 06/27/25 11:23 Height 5 ft 3 in Weight 170 lb 8 oz BMI 30.2 BP 122/72 Blood Pressure Location Rt brachial Position Sitting Respiration 14 Pulse 84 Pulse Source Pulse Oximeter Pulse Oximetry (%) 99 Oxygen Delivery Method Room Air Intake Visit Reasons: CPE Intake Note: Physical. having a meniscus tear repair 07/20/2024 Lighting Designer Required: No Allergies No Known Allergies (No Known Allergies*) Allergy (Verified 06/27/25 11:22) Tobacco use date assessed: 06/27/25 Fall risk assessment: No Falls in past year Last assessed Fall Risk: 06/27/25 Dental Screening Dental Screen Date: 12/02/24 HPI HPI Comments History of Present Illness Details 65 year old female with past medical history of hyperlipidemia, colon polyps, meniscal tear presenting for CPE CV: On atorvastatin 3x/week. No hypertension. No chest pain. Has been following a low carb, low calorie diet and exercising daily for the past 2 years with no weight loss success. MSK: Dr Bhaskar Lopez. Meniscal tear. Repair scheduled for July. Follows with dermatology. History of melanoma Saw [facility] Colonoscopy 06/2025, prior 2019. Showed 1 TA and 1 hyperplastic polyp, the prior were hyperplastic only. Her mother had CRC. She had colonoscopy in Jun-multiple polyps. At present told 3 years Mammo 05/2025 DXA: Osteopenia 05/2025 ROS CONSTITUTIONAL: Denies weight loss, fever and chills. HEENT: Denies changes in vision and hearing. RESPIRATORY: Denies SOB and cough. CV: Denies palpitations and CP GI: Denies abdominal pain, nausea, vomiting and diarrhea. : Denies dysuria and urinary frequency. MSK: Denies new myalgia and joint pain. SKIN: Denies rash and pruritus. NEUROLOGICAL: Denies headache PSYCHIATRIC: Denies recent changes in mood. PHYSICAL EXAM: GENERAL: Alert and oriented x 3. NAD EYES: EOMI. Anicteric. HENT: Moist mucous membranes. No scleral icterus. No cervical lymphadenopathy. LUNGS: Clear to auscultation bilaterally. CARDIOVASCULAR: Regular rate and rhythm. No murmur. No JVD. ABDOMEN: Soft, non-tender +bs EXTREMITIES: No edema. Non-tender. SKIN: No rashes or lesions. Warm. NEUROLOGIC: No focal neurological deficits. CN II-XII grossly intact PSYCHIATRIC: Cooperative. Appropriate mood and affect [facility] Medical History Melanoma of skin Hypercholesterolemia Family history of colon cancer Surgical History H/O melanoma excision Hx of tonsillectomy History of colonoscopy Family History Mother History of colon cancer, Onset Age: 77 Mother No problems noted. Father No problems noted. 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 1. Little interest or pleasure in doing things: not at all 2. Feeling down, depressed, or hopeless: not at all 3. Trouble falling or staying asleep, or sleeping too much: not at all 4. Feeling tired or having little energy: not at all 5. Poor appetite or overeating: not at all 6. Feeling bad about yourself - or that you are a failure or have let yourself or your family down: not at all 7. Trouble concentrating on things, such as reading the newspaper or watching television: not at all 8. Moving or speaking so slowly that other people could have noticed. Or the opposite - being so fidgety or restless that you have been moving around a lot more than usual: not at all 9. Thoughts that you would be better off or of hurting yourself in some way: not at all Total score: 0 Depression Screening Interpretation: Negative Depression Screening Done: Yes 45486 - PHQ-9 Billing: Yes Source: Developed by Drs. Buzz Perez, Kana Roque and colleagues, with an educational philomena from [employer]. Thrive Questionnaire Date Thrive assessed: 06/24/25 I am a: Patient What is your living situation today?: I have a steady place to live Within the past 12 months, did the food you bought not last and you didn't have the money to get more?: Never true Within the past 12 months, did you worry whether your food would run out before you got money to buy more?: Never true Do you have trouble paying for medicines?: No Do you have trouble getting transportation to medical appointments?: No Do you have trouble paying your heating and electricity bill?: No Do you have trouble taking care of your child, family member or friend?: No Do you have trouble with day-to-day activities such as bathing, preparing meals, shopping, managing finances, etc.?: No Are you currently unemployed and looking for a job?: No Are you interested in more education?: No Please select the resources that you would like help with: None Currently or been in a relationship where the following occur: No concerns reported THRIVE Score: 0 AUDIT C Alcohol Use Questionnaire (AUDIT-C) 1. How often do you have a drink containing alcohol?: Never 3. How often do you have six or more drinks on one occasion?: Never Total Score: 0 MO-7 AMB Questionnaire MO-7 Date MO - 7 assessed: 12/02/24 Feeling nervous, anxious, or on edge: 0 = Not at all Not being able to stop or control worryin = Not at all Worrying too much about different things: 0 = Not at all Trouble relaxin = Not at all Being so restless that it is hard to sit still: 0 = Not at all Becoming easily annoyed or irritable: 0 = Not at all Feeling afraid as if something awful might happen: 0 = Not at all Total MO-7 score (0-4 normal; 5-9 mild; 10-14 moderate; 15-21 severe): 0 Source: Developed by Drs. Buzz Perez, Kana Roque and colleagues, with an educational philomena from [employer]. Physical exam (Primary Care) Vital Signs: Last Vital Signs Pulse 84 12/22/25 11:23 Resp 14 06/27/25 11:23 BP 122/72 06/27/25 11:23 Pulse Ox 99 06/27/25 11:23 Oxygen Delivery Method Room Air 06/27/25 11:23 BMI result Body Mass Index 30.2 Tobacco/Smoking Status: Tobacco use Status Tobacco use date assessed 06/27/25 06/27/25 11:25 Patient Tobacco Use Status Never used Tobacco 06/27/25 11:26 e-Cigarette/Vaping Use Never Used 06/27/25 11:26 PHQ-9: PHQ-9 Score PHQ-9: Total score 0 06/27/25 11:48 Depression Screening Interpretation: Negative Thrive Assessment: Date of Thrive Assessment Date Thrive assessed 06/24/25 06/27/25 11:22 Currently or been in a relationship where the following occur: No concerns reported Coding Level of Care Code Est Pt Prev Care >65y(13873) Diagnoses Physical exam Z00.00 High cholesterol E78.00 Osteopenia, unspecified location M85.80 Osteopenia location: unspecified Additional Codes PHQ-9 - 78835 - PHQ-9 Billing: Yes ([id number]) Assessment & Plan Assessment & Plan (1) Physical exam: Code(s): Z00.00 - Encounter for general adult medical examination without abnormal findings (2) High cholesterol: Code(s): E78.00 - Pure hypercholesterolemia, unspecified Category: Medical (3) Osteopenia: Code(s): M85.80 - Other specified disorders of bone density and structure, unspecified site Category: Medical Qualifiers: Osteopenia location: unspecified Qualified Code(s): M85.80 - Other specified disorders of bone density and structure, unspecified site Plan CPE Interval history reviewed Preventive measures for age discussed Continues wegovy for obesity. She is doing well on the medication HLD-continue statin 3x/week Labs ordered Orders: Orders Comprehensive Met. Panel 06/27/25 E66.811 - Obesity, class 1, E78.00 - Pure hypercholesterolemia, unspecified, M85.80 - Other specified disorders of bone density and structure, unspecified site, Z13.0 - Encounter for screening for diseases of the blood and blood-forming organs and certain disorders involving the immune mechanism Lipid Panel 06/27/25 E66.811 - Obesity, class 1, E78.00 - Pure hypercholesterolemia, unspecified, M85.80 - Other specified disorders of bone density and structure, unspecified site, Z13.0 - Encounter for screening for diseases of the blood and blood-forming organs and certain disorders involving the immune mechanism Vitamin D 1,25 dihydroxy 06/27/25 E66.811 - Obesity, class 1, E78.00 - Pure hypercholesterolemia, unspecified, M85.80 - Other specified disorders of bone density and structure, unspecified site, Z13.0 - Encounter for screening for diseases of the blood and blood-forming organs and certain disorders involving the immune mechanism Complete Blood Count Auto Diff 06/27/25 E66.811 - Obesity, class 1, E78.00 - Pure hypercholesterolemia, unspecified, M85.80 - Other specified disorders of bone density and structure, unspecified site, Z13.0 - Encounter for screening for diseases of the blood and blood-forming organs and certain disorders involving the immune mechanism Hemoglobin A1c 06/27/25 E66.811 - Obesity, class 1, E78.00 - Pure hypercholesterolemia, unspecified, M85.80 - Other specified disorders of bone density and structure, unspecified site, Z13.0 - Encounter for screening for diseases of the blood and blood-forming organs and certain disorders involving the immune mechanism Medications: Changed From semaglutide (weight loss) 0.5 mg (0.5 mL) subcut QWEEK 6 mL 0RF E66.811 - Obesity, class 1, E78.00 - Pure hypercholesterolemia, unspecified To Wegovy (semaglutide (weight loss)) 0.5 mg (0.5 mL) subcut QWEEK 6 mL 3RF NS E66.811 - Obesity, class 1, E78.00 - Pure hypercholesterolemia, unspecified
[2025-06-27 11:23] VITALS: BP 122/72; PULSE 84; RESP 14; O2SAT 99; BMI 30.2
--- OUTSIDE RECORDS SUMMARY | 2025-06-27 14:26 | XMS_ITS | Patient Health Record ---
[facility] Address [address] [place] [id number] Care Team Providers Care Tongue Lining Stitcher Name Role Phone Buzz Delcid [phone] Reason For Referral No Information Plan Of Treatment No Information
--- OUTSIDE RECORDS SUMMARY | 2025-06-27 14:26 | XMS_ITS | Clinical Summary ---
Author Organization [facility] Address [address] [place] [phone] Phone Care Team Providers Care Art Consultant Name Role Phone Blair Light MD Primary [...] topic Medical Devices Not on [place] [address] [place] [address] [place] [id number] [place] [id number] [facility] Care Teams Art Consultant Relationship Specialty Start Date End Date Blair Light MD [address] [place] [address] [place] [address] [address] PCP - General Internal Medicine 03/09/24 Additional Source Comments The information contained in this document represents components of the legal health record. It is not the complete legal health record.[facility]
== END 2025-06-27 16:40 | disposition home or self-care (01) ==
LOC: HO.HMCFM 11:18
PROVIDERS: PCP Internal Medicine; Visit Provider Internal Medicine
DX: Z00.00 Encounter for general adult medical examination without abnormal findings (principal); E78.00 Pure hypercholesterolemia, unspecified; M85.80 Other specified disorders of bone density and structure, unspecified site

== ENCOUNTER → 2025-06-27 11:18 | Outpatient (BNVA) | payer OTHER, SELFPAY | PROVIDERS: PCP Internal Medicine; Visit Provider Internal Medicine | DX: Z00.00 Encounter for general adult medical examination without abnormal findings (principal); E78.00 Pure hypercholesterolemia, unspecified; M85.80 Other specified disorders of bone density and structure, unspecified site | CPT/HCPCS: 96127 ==

== ENCOUNTER 2025-07-05 07:01 | Outpatient (REF) | payer OTHER, SELFPAY ==
--- OUTSIDE RECORDS SUMMARY | 2025-07-05 08:47 | XMS_ITS | Clinical Summary ---
Author Organization [facility] Address [address] [place] [phone] Phone Care Team Providers Care Provider Enrollment Specialist Name Role Phone Blair Light MD Primary [...] topic Medical Devices Not on file [place] [address] [place] [address] [place], [place] [address] [place], [place] [address] [facility] HMO [facility] HMO Care Teams Provider Enrollment Specialist Relationship Specialty Start Date End Date Blair Light MD [address] [place] [address] [address] PCP - General Internal Medicine 03/09/24 Additional Source Comments The information contained in this document represents components of the legal health record. It is not the complete legal health record.[facility]
--- OUTSIDE RECORDS SUMMARY | 2025-07-05 08:47 | XMS_ITS | Patient Health Record ---
Author Organization [facility] Address [address] [place] [id number] Care Team Providers Care Pastry Wrapper Name Role Phone Buzz Delcid [phone] Reason For Referral No Information Plan Of Treatment No Information
[2025-07-05 10:37] LABS: MANUAL DIFF FLAG NO
[2025-07-05 10:47] LABS: Hematocrit 38.5 % (37.0-47.0); Hemoglobin 12.9 g/dl (12.0-16.0); Imm Gran Abs Auto 0.01 X10*3/uL (0.00-0.03); Imm Gran Pct Auto 0.3 % (0.0-0.4); Lymphocytes Absolute Auto 1.7 X10*3/uL (1.2-4.9); Mean Corpuscular HGB Conc 33.5 g/dl (31.0-35.0); Mean Corpuscular Hemoglobin 30.6 pg (27.0-33.0); Mean Corpuscular Volume 91.2 fL (80.0-98.0); NRBC Abs Auto 0.000 X10*3/uL (0.0-0.012); NRBC Pct Auto 0.0 /100WBC (0.0-0.2); Platelet Count 242 X10*3/uL (160-400); Red Blood Count 4.22 X10*6/uL (4.20-5.50); White Blood Count 3.9 X10*3/uL (4.8-10.8)
[2025-07-05 11:21] LABS: Alanine Aminotransferase 27 U/L (0-31); Albumin Level 4.4 g/dL (3.5-5.0); Alkaline Phosphatase 39 U/L (39-117); Anion Gap 11 (12-20); Aspartate Amino Transferase 25 U/L (5-31); Blood Urea Nitrogen 17 mg/dL (9-16); Calcium 9.2 mg/dL (8.4-10.2); Carbon Dioxide 28 mmol/L (22-29); Chloride 106 mmol/L (96-108); Cholesterol 192 mg/dL (<200); Estimated Glomerular Filt Rate 57; HDL Cholesterol 42 mg/dL (>40); Potassium 4.6 mmol/L (3.3-5.1); Sodium 140 mmol/L (135-145); Total Protein 7.4 g/dL (6.5-8.0); Triglycerides 113 mg/dL (<150)
== END 2025-07-05 07:02 | disposition home or self-care (01) ==
LOC: HO.HMGCLDS 07:01
PROVIDERS: PCP Internal Medicine; Visit Provider Internal Medicine
DX: Z13.0 Encounter for screening for diseases of the blood and blood-forming organs and certain disorders involving the immune mechanism (principal); E78.00 Pure hypercholesterolemia, unspecified; M85.80 Other specified disorders of bone density and structure, unspecified site; E66.811 Obesity, class 1; Z13.1 Encounter for screening for diabetes mellitus; Z13.29 Encounter for screening for other suspected endocrine disorder
CPT/HCPCS: 36415; 80053; 80061; 82652; 83036; 85025